=== PATIENT | male | born 1955 | race Caucasian/White ===

== ENCOUNTER 2018-02-21 01:57 | Outpatient (CLI) | payer MEDICARE, MEDICAID, SELFPAY ==
[2018-02-21 13:12] LABS: Hemoglobin A1C 6.1 % (4.5-6.2)
[2018-02-21 13:24] LABS: ALT 46 U/L (12-78); AST 27 U/L (15-37); Alkaline Phosphatase 157 U/L (46-116); Anion Gap 6.8 mmol/L (3-11); BUN 16 mg/dL (7-18); Bilirubin, Total 0.5 mg/dL (0.2-1.0); CO2 31.2 mmol/L (21.0-32.0); CREATININE 1.09 mg/dL (0.70-1.30); Chloride 102 mmol/L (98-107); Cholesterol 159 mg/dL (50-200); Glucose 101 mg/dL (70-100); HDL Cholesterol 31 mg/dL (40-60); LDL CHOLESTEROL 112 mg/dL (<100); Potassium 4.8 mmol/L (3.5-5.1); Sodium 140 mmol/L (136-145); Total Protein 7.3 g/dL (6.4-8.2); Triglyceride 112 mg/dL (30-150)
== END 2018-02-21 02:17 ==
PROVIDERS: PCP Family Medicine; Visit Provider Family Medicine
DX: E78.5 Hyperlipidemia, unspecified (principal); R73.01 Impaired fasting glucose
CPT/HCPCS: 36415; 80053; 80061; 83721; 83036

== ENCOUNTER 2018-03-30 19:38 | Emergency (ER) | payer MEDICARE, MEDICAID, SELFPAY ==
[2018-03-30 19:48] VITALS: BP 108/73; PULSE 84; RESP 16; TEMP 37; O2SAT 95
--- NOTE | 2018-03-30 20:23 | ED.GENADUL_ITS ---
Discharge Plan Disposition Patient Disposition: HOME Condition: Improving Discharge Details Chief Complaint: RespSymp Clinical Impression: Viral upper respiratory illness Primary Care Provider: Ten Trevino ED Provider: Jimmie Barbosa Home Meds and New Rx's Prescriptions: New guaifenesin [Mucinex] 600 mg tablet extended release 12hr 600 mg PO Q12H PRNQty: 10 RF: 0 benzonatate [Tessalon Perles] 100 mg capsule 100 mg PO TID PRN (Reason: cough) Qty: 10 RF: 0 Continued cyanocobalamin (vitamin B-12) [Vitamin B-12] 1,000 mcg tablet extended release 1,000 mcg PO DAILY Qty: 90 RF: 4 aspirin 325 MG tablet,delayed release (DR/EC) 325 mg PO DAILY Qty: 90 RF: 3 metoprolol tartrate 25 MG tablet 0.5 tab PO BID Qty: 90 RF: 3 losartan 50 MG tablet 50 mg PO DAILY Qty: 90 RF: 3 omeprazole 20 MG capsule,delayed release(DR/EC) 1 tab PO BID Qty: 180 RF: 3 ProAir HFA 8.5 GM HFA aerosol inhaler 1 - 2 puff Inhalation Q6H PRN Qty: 1 RF: 3 carbidopa-levodopa [Sinemet] 1 EACH tablet 1 tab PO HS Qty: 90 RF: 3 atorvastatin 80 MG tablet 80 mg PO DAILY Qty: 90 RF: 3 ibuprofen 800 MG tablet 800 mg PO TID PRNQty: 50 RF: 2 nitroglycerin 0.4 MG tablet, sublingual 0.4 mg Sublingual PRN Qty: 30 RF: 3 Flovent HFA 12 GM HFA aerosol inhaler 1 puff Inhalation BID Qty: 1 RF: 2 furosemide 40 mg tablet 40 mg PO DAILY Qty: 90 RF: 3 bupropion HCl [Wellbutrin SR] 150 mg tablet extended release 12 hr 150 mg PO BID Qty: 180 RF: 3 Centrum Silver Men 1 EACH tablet 1 tab PO DAILY RF: 0 Discharge Instructions Instructions: Upper Respiratory Infection (ED) Additional Instructions: Home to rest today. Small, frequent sips of fluids to maintain hydration. Follow-up with [facility] if not improving in 3-5 days time. May use Tessalon and Mucinex as prescribed. May use the provided cough syrup as needed at bedtime tonight Medical Decision Making 62-year-old male presents with not quite 24 hours of upper respiratory illness with cough, congestion, malaise. He arrives with normal vital signs. Initial diagnosis includes viral syndrome, influenza, bronchitis. Patient had rapid influenza screen was referred for chest x-ray. Rapid influenza negative. Chest x-ray Lab Data 03/30/18 20:25 Nasopharynx Influenza Types A,B Antigen - Final HPI General Mode of arrival: ambulatory . Date/Time Provider Initiated Documentation: 03/30/18 19:54 . Limitations to Documentation: no limitations . Information obtained by: patient . History of Present Illness 62 year old M presents to the emergency department with the chief complaint of Fever, cough, congestion over 1 days time, described as moderate, Quality is described as aching, and is localized to the chest. Patient started experiencing this hour(s) and it has been constant. No relieving factors improve symptom(s), No exacerbating factors reported . Patient notes cough, fever/chills and loss of appetite. Patient did receive the following treatments prior to arrival, NSAID Related Data Home Medications Medication Instructions Recorded Confirmed aspirin 325 mg PO DAILY #90 tab-cap 11/26/16 03/30/18 metoprolol tartrate 0.5 tab PO BID #90 tab-cap 03/25/17 03/30/18 ProAir HFA 1 - 2 puff INHALATION Q6H PRN #1 03/27/17 03/30/18 inhaler carbidopa-levodopa [Sinemet] 1 tab PO HS #90 tab 03/27/17 03/30/18 losartan 50 mg PO DAILY #90 tab-cap 03/27/17 03/30/18 omeprazole 1 tab PO BID #180 tab 03/27/17 03/30/18 atorvastatin 80 mg PO DAILY #90 tab-cap 05/14/17 03/30/18 ibuprofen 800 mg PO TID PRN #50 tab 05/14/17 03/30/18 Flovent HFA 1 puff INHALATION BID #1 inhaler 07/16/17 03/30/18 nitroglycerin 0.4 mg SUBLINGUAL PRN #30 tab 07/16/17 03/30/18 Centrum Silver Men 1 tab PO DAILY 09/03/17 03/30/18 furosemide 40 mg tablet 40 mg PO DAILY #90 tab 12/18/17 03/30/18 bupropion HCl SR 150 mg tablet,12 150 mg PO BID #180 tab-cap 18 03/30/18 hr sustained-release cyanocobalamin (vit B-12) ER 1,000 1,000 mcg PO DAILY #90 tab 02/21/18 03/30/18 mcg tablet,extended release benzonatate [Tessalon Perles] 100 mg PO TID PRN #10 cap 03/30/18 guaifenesin [Mucinex] 600 mg PO Q12H PRN #10 tab 03/30/18 Previous Rx's Medication Instructions Recorded metoprolol tartrate 0.5 tab PO BID #90 tab-cap 03/25/17 ProAir HFA 1 - 2 puff INHALATION Q6H PRN #1 03/27/17 inhaler carbidopa-levodopa [Sinemet] 1 tab PO HS #90 tab 03/27/17 losartan 50 mg PO DAILY #90 tab-cap 03/27/17 omeprazole 1 tab PO BID #180 tab 03/27/17 atorvastatin 80 mg PO DAILY #90 tab-cap 05/14/17 Flovent HFA 1 puff INHALATION BID #1 inhaler 07/16/17 nitroglycerin 0.4 mg SUBLINGUAL PRN #30 tab 07/16/17 furosemide 40 mg tablet 40 mg PO DAILY #90 tab 12/18/17 bupropion HCl SR 150 mg tablet,12 150 mg PO BID #180 tab-cap 01/03/18 hr sustained-release cyanocobalamin (vit B-12) ER 1,000 1,000 mcg PO DAILY #90 tab 02/21/18 mcg tablet,extended release benzonatate [Tessalon Perles] 100 mg PO TID PRN #10 cap 03/30/18 guaifenesin [Mucinex] 600 mg PO Q12H PRN #10 tab 03/30/18 Allergies Allergy/AdvReac Type Severity Reaction Status Date / Time No Known Allergies Allergy Unverified 03/30/18 19:51 General Stated Complaint: RespSymp UNIQUE: 3 Review of Systems Review of Systems 8 systems reviewed and otherwise - PFSH Surgical History Appendectomy Colonoscopy - MAC (03/11/17) Heart Surgery Shoulder Surgery (~03/2016) Family History Mother Stroke Father Heart disease Sister Heart disease Brother Heart disease Sister Heart disease Sister No problems noted. Sister No problems noted. Sister Heart disease Brother Diabetes Brother No problems noted. Son No problems noted. Daughter No problems noted. Daughter No problems noted. Social History household members: spouse current occupational status: disabled pets and animals: Yes pets and animals: cat(s) frequency: 1-2 times per week duration: 60-90 minutes/day Smoking/Tobacco Use Status: Former Tobacco Use alcohol intake: never substance use type: does not use alma delia/congregational: Confucianist special alma delia needs: No Exam Narrative Exam Narrative: GEN: awake, alert, oriented 3. Pleasant, well groomed, interactive. HEAD: Normocephalic, atraumatic ENT: Mucous membr, TMs clear bilaterally Anes moist, oropharynx erythematous tonsillar pillars without swelling or, External ear exam unremarkable EYES: PERRL, EOMI NECK: Full ROM, no TEE, no menigismus CHEST/RESP: Nontender, clear to auscultation bilateral, no wheeze/rhonchi/rales CARDIOVASCULAR: RRR, no murmur, rub michael. 2+ Rad pulse bilateral ABDOMEN: Soft, nontender, no mass. +Bowel sounds EXT: Full ROM, no edema, no rash Neuro: Grossly normal neurologic exam, conversant, interactive. Psych: Speech fluent, thoughts congruent, affect normal Course Vital Signs Temperature 37.0 C 03/30/18 19:48 Pulse 84 03/30/18 19:48 Respiratory Rate 16 03/30/18 19:48 Blood Pressure 108/73 03/30/18 19:48 Pulse Oximetry 95 03/30/18 19:48 Temperature 37.0 C 03/30/18 19:48 Temperature Source Temporal Artery Scan 03/30/18 19:48 Pulse 84 03/30/18 19:48 Respiratory Rate 16 03/30/18 19:48 Respiratory Effort Non-Labored 03/30/18 19:53 Respiratory Depth Normal 03/30/18 19:53 Blood Pressure 108/73 03/30/18 19:48 Blood Pressure Position Sitting 03/30/18 19:48 Pulse Oximetry 95 03/30/18 19:48 Oxygen Delivery Method Room Air 03/30/18 19:48 Oxygen Flow Rate 0 03/30/18 19:48 Pain Level 6 03/30/18 19:48 Comment 03/30/18 19:48
[2018-03-30] MEDS: guaiFENesin/CODEINE PHOSPHATE 10 ML CUP PO (20:42)
[2018-03-30] MEDS: guaiFENesin/CODEINE PHOSPHATE 10 ML CUP 20 ML PO (20:42)
--- NOTE | 2018-03-30 20:44 | DI.RAD_ITS ---
SYMPTOM/DIAGNOSIS: COUGH PA AND LATERAL CHEST: 03/30 The heart is not enlarged. The lungs appear generally clear. A faint rounded radiodensity is seen overlying T-8 vertebral body posteriorly present on previous examinations including 10/13/13 and unchanged. No pleural effusion seen. CONCLUSION: No evidence of acute disease.
--- NOTE | 2018-03-30 21:06 | DI.VRAD_ITS ---
EXAM: XR Chest, 2 Views EXAM DATE/TIME: 03/30/2018 8:16 PM CLINICAL HISTORY: 62 years old, male; Signs and symptoms; Cough TECHNIQUE: XR of the chest, 2 views. COMPARISON: CR CHEST 2 VIEWS PA,LAT 03/19/2017 12:18 AM FINDINGS: Lungs: No consolidation. Pleural space: No pleural effusion. No pneumothorax. Heart/Mediastinum: No cardiomegaly. Bones/joints: No acute fracture. IMPRESSION: No acute cardiopulmonary pathology. Dictated and Authenticated by: Sharon Lo MD. Ordering:LEENA Samuel MD
== END 2018-03-30 21:25 | disposition home or self-care (01) ==
PROVIDERS: Emergency Provider Emergency Medicine; PCP Family Medicine
DX: J06.9 Acute upper respiratory infection, unspecified (principal); J44.9 Chronic obstructive pulmonary disease, unspecified; Z87.891 Personal history of nicotine dependence; E11.9 Type 2 diabetes mellitus without complications
CPT/HCPCS: 87449; 99283; 71046

== ENCOUNTER 2018-09-26 09:24 | Outpatient (CLI) | payer MEDICARE, MEDICAID, SELFPAY ==
[2018-09-26 10:10] LABS: HCT 45.2 % (40.0-50.0); Mean Corp. HGB Concentration 33.2 g/dL (32.0-36.0); Mean Corpuscular Hemoglobin 29.8 pg (27.0-33.0); Mean Corpuscular Volume 89.9 fL (80-95); Mean Platelet Volume 9.1 fL (8.0-11.0); Platelet Count 257 x1000/uL (130-400); RBC 5.03 m/cumm (4.50-6.00); RBC Distribution Width 12.9 % (11.8-14.1); White Blood Cell Count 6.59 k/cumm (4.4-10.8)
[2018-09-26 12:00] LABS: ALT 35 U/L (12-78); AST 21 U/L (15-37); Albumin 3.8 g/dL (3.4-5.0); Alkaline Phosphatase 136 U/L (46-116); Anion Gap 9.9 mmol/L (3-11); BUN 25 mg/dL (7-18); Bilirubin, Total 0.3 mg/dL (0.2-1.0); CO2 27.1 mmol/L (21.0-32.0); CREATININE 1.02 mg/dL (0.70-1.30); Calcium 8.8 mg/dL (8.5-10.1); Calculated LDL 99; Chloride 107 mmol/L (98-107); Cholesterol 143 mg/dL (50-200); Glucose 110 mg/dL (70-100); HDL Cholesterol 27 mg/dL (40-60); Potassium 5.2 mmol/L (3.5-5.1); Sodium 144 mmol/L (136-145); Total Protein 6.8 g/dL (6.4-8.2); Triglyceride 86 mg/dL (30-150)
== END 2018-09-26 09:44 ==
PROVIDERS: PCP Family Medicine; Visit Provider Family Medicine
DX: E78.5 Hyperlipidemia, unspecified (principal); I10 Essential (primary) hypertension; R73.01 Impaired fasting glucose
CPT/HCPCS: 36415; 80053; 80061; 83721; 85027

== ENCOUNTER 2019-01-20 11:32 | Outpatient (CLI) | payer MEDICARE, MEDICAID, SELFPAY ==
[2019-01-20 14:01] LABS: ALT 39 U/L (16-63); AST 23 U/L (15-37); Alkaline Phosphatase 141 U/L (46-116); BUN 17 mg/dL (7-18); Bilirubin, Total 0.3 mg/dL (0.2-1.0); CREATININE 1.19 mg/dL (0.70-1.30); Calcium 8.5 mg/dL (8.5-10.1); Calculated LDL 100 mg/dL; Chloride 105 mmol/L (98-107); Cholesterol 150 mg/dL (50-200); GGT 71 U/L (15-85); Glucose 94 mg/dL (70-100); HDL Cholesterol 25 mg/dL (40-60); Magnesium 2.5 mg/dL (1.8-2.4); Potassium 5.2 mmol/L (3.5-5.1); Sodium 142 mmol/L (136-145); Total Protein 6.9 g/dL (6.4-8.2); Triglyceride 126 mg/dL (30-150)
== END 2019-01-20 11:52 ==
PROVIDERS: PCP Family Medicine; Visit Provider Family Medicine
DX: I25.10 Atherosclerotic heart disease of native coronary artery without angina pectoris (principal); E78.5 Hyperlipidemia, unspecified; I10 Essential (primary) hypertension; R73.01 Impaired fasting glucose; G47.62 Sleep related leg cramps; R74.8 Abnormal levels of other serum enzymes
CPT/HCPCS: 36415; 80053; 80061; 82977; 83036; 83735

== ENCOUNTER 2020-01-28 04:11 | Outpatient (CLI) | payer MEDICARE, MEDICAID, SELFPAY ==
[2020-01-28 11:13] LABS: ALT 32 U/L (16-63); AST 29 U/L (15-37); Alkaline Phosphatase 147 U/L (46-116); Anion Gap 6.6 mmol/L (3-11); BUN 21 mg/dL (7-18); Bilirubin, Total 0.4 mg/dL (0.2-1.0); CO2 30.4 mmol/L (21.0-32.0); Calcium 8.9 mg/dL (8.5-10.1); Calculated LDL 120 mg/dL (<100); Chloride 103 mmol/L (98-107); Cholesterol 165 mg/dL (<200); Glucose 125 mg/dL (74-106); HDL Cholesterol 27 mg/dL (40-60); Magnesium 2.1 mg/dL (1.8-2.4); Sodium 140 mmol/L (136-145); Total Protein 7.3 g/dL (6.4-8.2); Triglyceride 91 mg/dL (<150)
== END 2020-01-28 04:31 ==
PROVIDERS: PCP Family Medicine; Visit Provider Family Medicine
DX: E78.5 Hyperlipidemia, unspecified (principal); I25.10 Atherosclerotic heart disease of native coronary artery without angina pectoris
CPT/HCPCS: 36415; 80053; 80061; 83735

== ENCOUNTER → 2020-12-22 12:41 | Outpatient (BNVA) | payer OTHER, MEDICAID, SELFPAY | PROVIDERS: PCP Nurse Practitioner; Referring Provider Family Medicine; Visit Provider Physical Therapy Assistant | DX: Z12.11 Encounter for screening for malignant neoplasm of colon (principal); Z86.010 Personal history of colon polyps; J44.9 Chronic obstructive pulmonary disease, unspecified ==

== ENCOUNTER 2021-01-11 02:11 | Outpatient (CLI) | payer OTHER, MEDICAID, SELFPAY ==
[2021-01-11 09:15] LABS: Source Nasal/Nares
[2021-01-11 12:04] LABS: COVID-19 PCR Negative (Negative)
== END 2021-01-11 02:12 | disposition home or self-care (01) ==
LOC: LBO 02:11
PROVIDERS: PCP Nurse Practitioner; Visit Provider Surgery
DX: Z20.822 Contact with and (suspected) exposure to COVID-19 (principal); Z01.818 Encounter for other preprocedural examination
CPT/HCPCS: 87635

== ENCOUNTER 2021-01-13 06:04 | Day surgery (SDC) | payer OTHER, MEDICAID, SELFPAY ==
--- NOTE | 2021-01-12 21:34 | W.COLOREPORT ---
Colonoscopy Report Date of procedure: 01/13/21 Pre-op diagnosis general: hx of sessile serrated/+fam hx of CRC Post-op diagnosis procedure note: same Surgeon: Hope Rodriguez Anesthesia Type: General:No Airway Estimated blood loss (mL): 1 Pathology: other Complications: None Disposition: same day Prep: Miralax/Dulcolax Retraction Time: 10 Procedure Description: After informed consent was obtained the patient was taken to the procedure room and placed in a left decubitous position. Monitors were applied and a time out was done. The patients name, date of , procedure, allergies to medications and metal in their body was reviewed. The patient was then sedated. Once sedated and comfortable a rectal exam was done. External exam was normal. Internal exam revealed a normal sphincter tone and no palpable masses. The scope was then introduced and retrofelexed. No internal hemorrhoids were identified. The scope was then advanced to the cecum without difficulty. The TI and appendiceal orifice were identified. The prep was adequate. The scope was then slowly retracted over 10 minutes back into the rectum. Patient had a 0.75 cm flat polyp at 20 cm. This is removed in 2 bites of a cold forcep. No bleeding is noted. All specimen is retrieved. He does not have any diverticular disease. The mucosa is otherwise pink and healthy. No other polyps are visualized today. The scope was removed and the patient was woken up and taken back to Same day surgery in stable condition. The patient tolerated the procedure well and there were no immediate complications. Follow up: The patient should follow up in 5 years unless they develop changes in bowel habits or other new gastrointestinal complaints.
--- NOTE | 2021-01-12 21:35 | PDOC.DSDIS_ITS ---
Discharge Plan Disposition Patient Disposition: HOME Condition: Good Discharge Details Reason For Visit: colon scope Attending Provider: Hope Rodriguez Primary Care Provider: Rosalind Slater Home Meds and New Rx's Prescriptions: Continued nitroglycerin 0.4 mg tablet, sublingual 0.4 mg Sublingual PRN Qty: 30 RF: 5 albuterol sulfate [ProAir HFA] 90 mcg/actuation HFA aerosol inhaler 1 - 2 puff Inhalation Q6H PRN Qty: 1 RF: 3 atorvastatin 80 mg tablet 80 mg PO DAILY Qty: 90 RF: 3 bupropion HCl [Wellbutrin SR] 150 mg tablet sustained-release 12 hr 150 mg PO BID Qty: 180 RF: 3 carbidopa-levodopa [Sinemet] 25-100 mg tablet 1 tab PO HS Qty: 90 RF: 3 Hold Instructions: Home Medication placed on hold at Doctor's office cyanocobalamin (vitamin B-12) [Vitamin B-12] 1,000 mcg tablet extended release 1,000 mcg PO DAILY Qty: 90 RF: 4 Flovent HFA 110 mcg/actuation HFA aerosol inhaler 1 puff Inhalation BID Qty: 1 RF: 5 furosemide 40 mg tablet 40 mg PO DAILY Qty: 90 RF: 3 losartan 50 mg tablet 50 mg PO DAILY Qty: 90 RF: 3 metformin 500 mg tablet extended release 24 hr 500 mg PO QPM Qty: 90 RF: 3 metoprolol tartrate 25 mg tablet 12.5 mg PO BID Qty: 90 RF: 3 omeprazole 20 mg capsule,delayed release(DR/EC) 20 mg PO BID Qty: 180 RF: 3 aspirin 325 MG tablet,delayed release (DR/EC) 325 mg PO DAILY Qty: 90 RF: 3 Discontinued bisacodyl [Dulcolax (bisacodyl)] 5 mg tablet,delayed release (DR/EC) 5 mg PO ONCE Qty: 4 RF: 0 polyethylene glycol 3350 17 gram/dose powder 238 g PO ONCE Qty: 238 RF: 0 Discharge Instructions Additional Instructions: DSU Colonoscopy Post- Op Instructions Instructions for Everyone who is given Anesthesia: For your safety, please do the following for the next t wenty-four (24) hours: *Do Not operate a motor vehicle (car, truck, motorcycle, etc.) *Do Not drink alcoholic beverages or use any recreational drugs for the first 24 hours or while taking pain medications. The medications in your body may have a reaction that can be dangerous. *Do Not make any important decisions or sign any important papers. Findings: x1 small polyp *Resume aspirin therapy in 72 hours. Do not take NSAIDs if taking. Follow up:most likely repeat in 5 yrs time My office will send a letter in 2 to 3 weeks time, detailing as to what type of polyp it was and when we want you to repeat your colonoscopy. 1. No lifting over 20 pounds or strenuous activity for the first 24 hours after your procedure. After 24 hours there are no restrictions on your activity but you may feel fatigued for a few days. 2. After you arrive home you may have a light meal and return to your normal diet as you can tolerate it without feeling sick to your stomach. 3. You may have a bloated, gaseous feeling in your belly (abdomen) after a colonoscopy. Passing gas and belching will help. Walking or lying down on your left side with your knees flexed may relieve the discomfort. Call the office at [phone] (Office) or [phone] (Hospital) right away if you notice any of the following: a.Vomiting of blood or ?coffee ground stools?. b.Rectal bleeding 1Tbsp, blood clots or continuous bleeding. c.Severe belly (abdominal) pain. d.A hard distended belly (abdomen) and an inability to pass gas. 4. Please don?t expect to have a normal BM (bowel movement) for 2-3 days after your procedure. 5. If there are questions regarding the findings of your procedure, please contact your doctor 6. If you are unable to contact your doctor with a problem, contact the hospital at [phone]. 7. Continue all your regular medications unless directed otherwise. I understand the above instructions and have no questions. Signature of Patient or Adult Escort Name of Responsible Adult Escort Signature of Nurse Date/Time Activity:: see above Diet:: see above Discharge Orders Discharge Orders: Discharge Order (Routine); Ordered 01/12/21 Ordered By: Hope Rodriguez DS: Diagnosis Discharge Diagnosis (1) Chronic obstructive lung disease: Status: Acute (2) Coronary artery arteriosclerosis: Status: Acute (3) Depressive disorder: Status: Acute (4) Essential hypertension: Status: Acute (5) Gastroesophageal reflux disease with esophagitis: Status: Acute (6) Sessile colonic polyp: Status: Acute (7) DM type 2 (diabetes mellitus, type 2): Status: Acute (8) Family history of colon cancer: Status: Acute
[2021-01-13 06:22] VITALS: BP 116/80; PULSE 60; RESP 18; TEMP 36.2; O2SAT 96
--- NOTE | 2021-01-13 07:09 | ANES.PREOP_ITS ---
General Info Date of Service Date Performed: 01/13/21 Height: 5 ft 6 in Weight: 101.6 kg Body Mass Index (BMI): 36.1 Surgical Procedure: Operation Date: 01/13/21 07:35 Proposed Procedures Side Surgeon robert Rodriguez, DO Meds Allergies and Home Medications Allergies Allergy/AdvReac Type Severity Reaction Status Date / Time No Known Allergies Allergy Verified 01/13/21 06:26 Home Medication Medication Instructions Recorded aspirin 325 mg PO DAILY #90 tab-cap 11/26/16 nitroglycerin 0.4 mg sublingual 0.4 mg SUBLINGUAL PRN #30 tab 01/25/20 tablet albuterol sulfate 90 mcg/actuation 1 - 2 puff INHALATION Q6H PRN #1 09/23/20 aerosol inhaler inhaler atorvastatin 80 mg tablet 80 mg PO DAILY #90 tab-cap 09/23/20 bupropion HCl 150 mg tablet,12 hr 150 mg PO BID #180 tab-cap 09/23/20 sustained-release carbidopa 25 mg-levodopa 100 mg 1 tab PO HS #90 tab 09/23/20 tablet cyanocobalamin (vitamin B-12) 1,000 mcg PO DAILY #90 tab 09/23/20 1,000 mcg tablet,extended release fluticasone propionate 110 1 puff INHALATION BID #1 inhaler 09/23/20 mcg/actuation HFA aerosol inhaler furosemide 40 mg tablet 40 mg PO DAILY #90 tab 09/23/20 losartan 50 mg tablet 50 mg PO DAILY #90 tab-cap 09/23/20 metformin 500 mg tablet,extended 500 mg PO QPM #90 tab 09/23/20 release 24 hr metoprolol tartrate 25 mg tablet 12.5 mg PO BID #90 tab-cap 09/23/20 omeprazole 20 mg capsule,delayed 20 mg PO BID #180 tab 09/23/20 release bisacodyl 5 mg tablet,delayed 5 mg PO ONCE #4 tab 12/22/20 release polyethylene glycol 3350 17 238 g PO ONCE #238 g 12/22/20 gram/dose oral powder Current Visit Medications: Current Medications Generic Name Dose Route Start Last Admin Trade Name Freq PRN Reason Stop Dose Admin Hyoscyamine Sulfate 0.125 mg 01/12/21 21:33 Hyoscyamine 0.125 Mg Sl/Oral/Chew SL DIRECTED PRN Ringer's Solution 1,000 mls @ 80 mls/hr 01/13/21 06:00 IV 02/11/21 23:59 [facility] IV Miscellaneous Supplies 1 each 01/13/21 06:00 Iv Access IV 02/11/21 23:59 DIRECTED LILIA Ondansetron HCl 4 mg 01/12/21 21:33 Ondansetron 4 Mg/2 Ml Vial IVP Q4H PRN PRN Nausea / Vomiting Sodium Chloride 0 ml 01/13/21 06:00 Normal Saline Flush 10 Ml Syr IV 02/11/21 23:59 PRN PRN Sodium Chloride 0 ml 01/13/21 06:00 Normal Saline 10 Ml Vial IJ 02/11/21 23:59 DIRECTED PRN Sterile Water 0 ml 01/13/21 06:00 Water,Injection,Sterile 10 Ml Vial IJ 02/11/21 23:59 DIRECTED PRN PFSH Active Problems Active Problems: Problem Status Onset Code Family history of colon cancer 08/20/11 Z80.0 Chronic obstructive lung disease 09/29/08 J44.9 Coronary artery arteriosclerosis 09/02/13 I25.10 Depressive disorder 09/29/08 F32.9 Edema 09/22/14 R60.9 Essential hypertension 12/24/12 I10 Gastroesophageal reflux disease with esophagitis 09/29/08 K21.0 Hyperlipidemia 07/09/12 E78.5 Sessile colonic polyp 03/11/17 K63.5 Nocturnal leg cramps G47.62 DM type 2 (diabetes mellitus, type 2) E11.9 Left knee pain M25.562 Medical History Medical History Family history of colon cancer (08/20/11) Hx of myocardial infarction 2009-f/u with PCP Illiterate Per pt. pt. is unable to read or write, he is able to sign his name, but needs to have things read to him. Tobacco use disorder (07/09/12) quit 2009 Surgical History Surgical History Appendectomy Colonoscopy - MAC (03/11/17) Heart Surgery stents - 2009 Shoulder Surgery (~03/2016) Tobacco Smoking/Tobacco Use Status: Former Tobacco Use Quit Status: quit date established Second hand exposure: No Alcohol Alcohol Intake: current Alcohol intake frequency: holidays/special occasions only Alcohol type: beer Substance Use Substance use: Never Substance use type: does not use Vital Signs and Lab Results Vital Signs Most Recent Vital Signs in EMR: Most Recent Vital Signs Temp Pulse Resp BP Pulse Ox 36.2 C L 60 18 116/80 96 01/13/21 06:22 01/13/21 06:22 01/13/21 06:22 01/13/21 06:22 01/13/21 06:22 Point of Care Results Point of Care Results: Finger Stick Blood Glucose 104 01/13/21 06:48 Lab Results Blood Type / Crossmatch: No Data to Display Complete Blood Count: No Data to Display Complete Metabolic Panel: No Data to Display Liver Function Panel: No Data to Display Coagulation Panel: No Data to Display Cardiac Panel: No Data to Display Arterial Blood Gas: No Data to Display Venous Blood Gas: No Data to Display Pancreas Panel: No Data to Display Thyroid Panel: No Data to Display Infectious Disease: Coronavirus (COVID-19)(PCR) Negative (Negative) 01/11/21 08:36 01/11/21 Coronavirus 2019 Source Nasal/Nares 01/11/21 08:36 01/11/21 Blood Cultures: No Data to Display Toxicology Panel: No Data to Display Imaging and Studies Imaging and Studies Echocardiogram Summary: 06/30/12: EF 55%, Normal valves Cardiac Catheterization Summary: 06/30/12: Stent x2 to RCA Pulmonary Function Summary: DATE OF SERVICE: May 16, 2015 PRIMARY CARE PROVIDER: Terry Nichols M.D. INTERPRETATION OF STUDY: Spirometry shows mild obstructive airways disease with no significant bronchodilator response. LUNG VOLUMES: Show no evidence of restriction. DIFFUSION CAPACITY: Normal. AIRWAYS RESISTANCE: Normal. IMPRESSION: Overall normal pulmonary function study. Clinical correlation recommended. Both efforts for spirometry were either somewhat poor patient effort or represent intrathoracic but extrapulmonary airway obstruction based on the shape of the flow volume loop, therefore further evaluation for that may be recommended. When this study was compared to previous one from 09/30/08, the patient has 330 cc decline in FVC and 80 cc decline in FEV1. Anesthesia Assessment and Plan Anesthesia History Personal History: No History of Anesthesia Complications Family History: No Family History of Anesthesia Complications Exercise Tolerance Exercise Tolerance: Metabolic Equivalents>4 Pertinent Negatives Pertinent Negatives: No Symptoms of GERD Cardiac & Pulmonary Exam Cardiac Exam: Normal S1/S2 Heart Sounds Pulmonary Exam: Clear Bilateral Breath Sounds Airway Exam Known Difficult Airway: No Mallampati Class: 3 Mouth Opening: Narrow (< 3cm) Thyromental Distance: Less than 3 cm Neck Range of Motion: Full ROM Neck Circumference: Normal Teeth Condition: Removable Dentures/Plates Upper ASA Classification ASA Score: ASA 3 Emergency Case?: No NPO Status NPO Status: NPO Clears >2 hours, Solids >8 hours Anesthesia Plan Resuscitation Status: Full Code Anesthesia Technique: General Anesthesia Airway Planned: Natural Airway Monitors Used: Standard Monitors
[2021-01-13 07:30] VITALS: BMI 36.1
[2021-01-13] MEDS: Lactated Ringers 1,000 ML 80 ML IV (07:40)
--- NOTE | 2021-01-13 08:10 | BOWEL_PTH ---
PATIENT: Ravin Snyder LOC: [facility] U#:[id number] AGE/SX: 65/M ROOM: RE01/13/[address]: Hope Rodriguez : 1955 BED: DIS: 01/13/2021 SPEC #: [id number] RECD: 01/13/21 12:32 STATUS: JORY REQ #: [id number] EHSAN: 01/13/21 08:[address]: Hope Rodriguez DEPT: Surgical Specimen RECD BY: Indy Rizo ENTERED: 01/13/21 12:33 SP TYPE: Bowel OTHR DR: Rosalind Slater, PhD BREAD PANNER Tissues: 1 - BIOPSY BOWEL Procedures: GROSS AND MICRO LEVEL 4 Comments: [id number]
[2021-01-13 08:25] VITALS: BP 97/67; PULSE 70; RESP 20; TEMP 36.3; O2SAT 94
--- NOTE | 2021-01-13 08:50 | W.ANESPOSTOP ---
Postoperative Evaluation Date, Time and Location Date Performed: 01/13/21 Time Performed: 08:50 Patient Location: Day Surgery Unit Vital Signs Most Recent Imported Vital Signs: Most Recent Vital Signs Temp Pulse Resp BP Pulse Ox 36.3 C L 70 20 97/67 L 94 01/13/21 08:25 01/13/21 08:25 01/13/21 08:25 01/13/21 08:25 01/13/21 08:25 Pain Score Most Recent Pain Score: Most Recent Pain Score Pain Level 0 01/13/21 08:25 Assessment Mental Status: Arousable with meaningful communication Airway and Respiratory Function: Patent airway with normal (patient baseline) respiratory exam Cardiovascular Function: Hemodynamically Stable Hydration Status: Adequately Hydrated Nausea & Vomiting: No Nausea or Vomiting Pain: Pt. Denies Any Pain Peripheral Nerve Block: Patient did not receive a nerve block
[2021-01-13 09:07] VITALS: BP 105/65; PULSE 68; RESP 17; TEMP 36.3; O2SAT 94
== END 2021-01-13 09:34 | disposition home or self-care (01) ==
PROVIDERS: PCP Nurse Practitioner; Visit Provider Surgery
PROC: 0DJD8ZZ Inspection of Lower Intestinal Tract, Via Natural or Artificial Opening Endoscopic (ICD-10-PCS; CPT 45378; principal; 2021-01-13 07:30)
DX: Z12.11 Encounter for screening for malignant neoplasm of colon (principal); Z80.0 Family history of malignant neoplasm of digestive organs; Z86.010 Personal history of colon polyps; D12.5 Benign neoplasm of sigmoid colon
CPT/HCPCS: 45380; 88305; J2704

== ENCOUNTER 2021-02-10 03:26 | Outpatient (CLI) | payer OTHER, MEDICAID, SELFPAY ==
[2021-02-10 13:10] LABS: Anion Gap 11.6 mmol/L (3-11); BUN 22 mg/dL (7-18); CO2 25.4 mmol/L (21.0-32.0); Calcium 8.7 mg/dL (8.5-10.1); Calculated LDL 84 mg/dL (<100); Chloride 107 mmol/L (98-107); Cholesterol 139 mg/dL (<200); Glucose 118 mg/dL (74-106); HDL Cholesterol 26 mg/dL (40-60); Potassium 4.5 mmol/L (3.5-5.1); Sodium 144 mmol/L (136-145); Triglyceride 145 mg/dL (<150)
[2021-02-10 13:13] LABS: Hemoglobin A1C 6.5 % (<5.7)
== END 2021-02-10 03:27 | disposition home or self-care (01) ==
LOC: LOS 03:26
PROVIDERS: PCP Nurse Practitioner; Visit Provider Nurse Practitioner
DX: E11.9 Type 2 diabetes mellitus without complications (principal); I10 Essential (primary) hypertension; E78.5 Hyperlipidemia, unspecified; R60.0 Localized edema
CPT/HCPCS: 36415; 80048; 80061; 83036

== ENCOUNTER → 2021-06-06 10:24 | Outpatient (BNVA) | payer MEDICARE, SELFPAY | PROVIDERS: PCP Nurse Practitioner; Referring Provider Nurse Practitioner; Visit Provider Surgery | DX: M62.08 Separation of muscle (nontraumatic), other site (principal) | CPT/HCPCS: 99212; 99213 ==

== ENCOUNTER 2021-08-14 01:40 | Outpatient (CLI) | payer OTHER, MEDICAID, SELFPAY | END 2021-08-14 01:41 | disposition home or self-care (01) | LOC: LBO 01:40 | PROVIDERS: PCP Nurse Practitioner; Visit Provider Nurse Practitioner ==

== ENCOUNTER 2022-01-30 02:25 | Outpatient (CLI) | payer OTHER, MEDICAID, SELFPAY ==
[2022-01-30 13:04] LABS: Anion Gap 7.6 mmol/L (3-11); BUN 16 mg/dL (7-18); CO2 28.4 mmol/L (21.0-32.0); CREATININE 1.1 mg/dL (0.70-1.30); Calcium 8.3 mg/dL (8.5-10.1); Calculated LDL 86 mg/dL (<100); Chloride 105 mmol/L (98-107); Cholesterol 137 mg/dL (<200); Estimated GFR 74.96 (mL/min/1.73m2); Glucose 108 mg/dL (74-106); HDL Cholesterol 30 mg/dL (40-60); Potassium 4.2 mmol/L (3.5-5.1); Sodium 141 mmol/L (136-145); Triglyceride 107 mg/dL (<150)
[2022-01-30 13:32] LABS: Hemoglobin A1C 6.5 % (<5.7)
== END 2022-01-30 02:26 | disposition home or self-care (01) ==
LOC: LOS 02:25
PROVIDERS: PCP Nurse Practitioner; Visit Provider Nurse Practitioner
DX: E11.9 Type 2 diabetes mellitus without complications (principal); I10 Essential (primary) hypertension
CPT/HCPCS: 36415; 80048; 80061; 83036

== ENCOUNTER 2022-05-18 13:55 | Outpatient (REF) | payer OTHER, MEDICAID, SELFPAY ==
[2022-05-18 20:46] LABS: HCT 47.6 % (40.0-50.0); HGB 15.7 g/dL (13.5-17.5); MCH 29.8 pg (27.0-33.0); MCV 90 fL (80-95); Platelet Count 300 10^3/uL (130-400); RBC 5.27 10^6/uL (4.36-5.78); RDW 12.8 % (11.8-14.1); RDW-SD 42.5 fL; WBC 9.13 10^3/uL (4.4-10.8)
[2022-05-18 21:10] LABS: Ferritin 51 ng/mL (26-388)
== END 2022-05-18 13:56 | disposition home or self-care (01) ==
LOC: NCHCN 13:55
PROVIDERS: PCP Nurse Practitioner Family; Visit Provider Nurse Practitioner Family
DX: G47.62 Sleep related leg cramps (principal); E11.9 Type 2 diabetes mellitus without complications; I10 Essential (primary) hypertension
CPT/HCPCS: 85027; 82728

== ENCOUNTER 2022-05-28 01:18 | Outpatient (CLI) | payer OTHER, MEDICAID, SELFPAY ==
--- NOTE | 2022-05-28 08:00 | DI.RAD_ITS ---
Exam(s) XR KNEE LT 3V AP,LAT,ORLIN EXAM: XR KNEE LT 3V AP,LAT,ORLIN CLINICAL HISTORY: leg gives out,LT KNEE PAIN,M25.562. TECHNIQUE: 2D digital imaging was performed. Three views. COMPARISON: No exams were available for comparison FINDINGS: BONES: No acute fracture is present. No bony destructive lesion is seen. Enthesophyte at quadricep s insertion on the patella. JOINTS: Mild narrowing medial femoral tibial joint. Mild spurring at the articular aspect of the pat danita. The knee is normally aligned. No joint effusion is seen. SOFT TISSUE: Normal. IMPRESSION: Mild degenerative changes. DATA REPOSITORY: RADIATION DOSE DELIVERED:
== END 2022-05-28 01:38 ==
PROVIDERS: PCP Nurse Practitioner Family; Visit Provider Nurse Practitioner Family
DX: M17.12 Unilateral primary osteoarthritis, left knee (principal)
CPT/HCPCS: 73562

== ENCOUNTER → 2022-09-10 08:57 | Outpatient (BNVA) | payer OTHER, MEDICAID, SELFPAY | PROVIDERS: PCP Nurse Practitioner Family; Referring Provider Nurse Practitioner Family; Visit Provider Student in an Organized Health Care Education/Training Program | DX: M17.12 Unilateral primary osteoarthritis, left knee (principal); E11.9 Type 2 diabetes mellitus without complications | CPT/HCPCS: 20610; 99213; J1040 ==

== ENCOUNTER 2023-02-18 12:12 | Outpatient (CLI) | payer OTHER, MEDICAID, SELFPAY | END 2023-02-18 12:13 | disposition home or self-care (01) | LOC: DIORS 12:12 | PROVIDERS: PCP Nurse Practitioner Family; Referring Provider Nurse Practitioner Family; Visit Provider Student in an Organized Health Care Education/Training Program | DX: S83.242A Other tear of medial meniscus, current injury, left knee, initial encounter; X58.XXXA Exposure to other specified factors, initial encounter; M17.12 Unilateral primary osteoarthritis, left knee | CPT/HCPCS: 99213 ==

== ENCOUNTER → 2023-03-08 01:01 | Outpatient (CLI) | payer OTHER, MEDICAID, SELFPAY ==
--- NOTE | 2023-03-08 12:45 | DI.MRI_ITS ---
Exam(s) MR LOWER JOINT LT WO EXAM: MR LOWER JOINT LT WO CLINICAL HISTORY: pain, surgical planning,oa lt knee, tear of medial meniscus,m17.12,s83.242a. TECHNIQUE: Multiplanar multisequence MRI was performed. COMPARISON: CR XR KNEE LT 3V AP,LAT,ORLIN from 05/28/2022 FINDINGS: BONES: There is no fracture or contusion pattern. JOINTS: Articular cartilage is unremarkable. No effusion is present. TENDONS: Extensor mechanism: Unremarkable. Medial retinaculum: Unremarkable. Lateral retinaculum: Unremarkable. Popliteus: Unremarkable. MUSCLES: Unremarkable. MENISCI: There is hyperintense signal seen in the body of the medial meniscus. It appears to contact the inferior articular surface consistent with a tear. The lateral meniscus is unremarkable. SOFT TISSUES: Unremarkable. LIGAMENTS: Anterior Cruciate: Unremarkable. Posterior Cruciate: Unremarkable. Medial Collateral:Unremarkable. Lateral Collateral: Unremarkable. OTHER: IMPRESSION: 1. Findings of a tear of the body of the medial meniscus. 2. No evidence of a ligament tear. DATA REPOSITORY:
== END ==
PROVIDERS: PCP Nurse Practitioner Family; Visit Provider Student in an Organized Health Care Education/Training Program
DX: M17.12 Unilateral primary osteoarthritis, left knee (principal); S83.242A Other tear of medial meniscus, current injury, left knee, initial encounter; X58.XXXA Exposure to other specified factors, initial encounter
CPT/HCPCS: 73721

== ENCOUNTER → 2023-03-18 13:05 | Outpatient (BNVA) | payer OTHER, MEDICAID, SELFPAY | PROVIDERS: PCP Nurse Practitioner Family; Referring Provider Nurse Practitioner Family; Visit Provider Student in an Organized Health Care Education/Training Program | DX: S83.242A Other tear of medial meniscus, current injury, left knee, initial encounter (principal); X58.XXXA Exposure to other specified factors, initial encounter | CPT/HCPCS: 99213 ==

== ENCOUNTER 2023-04-16 10:23 | Day surgery (SDC) | payer OTHER, MEDICAID, SELFPAY ==
[2023-04-16] VITALS (8 sets, daily range): BP systolic 92–128; BP diastolic 54–83; PULSE 62–76; RESP 13–18; TEMP 36.2–36.6; O2SAT 93–97; BMI 33.8
--- NOTE | 2023-04-16 10:23 | PDOC.DSDIS_ITS ---
Date of service: 04/16/23 Time of Service: 11:38 Discharge Plan Disposition Patient Disposition: Home Condition: Good Discharge Details Reason For Visit: Left knee medial meniscus tear Attending Provider: Basilio Rodriguez Primary Care Provider: Uche Sharif Home Meds and New Rx's Prescriptions: New hydrocodone-acetaminophen 5-325 mg tablet 1 tab PO Q6H PRN (Reason: severe pain) Qty: 6 0RF Rx Instructions: Take one tablet up to every 6 hours as needed for severe postoperative pain Continued atorvastatin 80 mg tablet 80 mg PO DAILY Qty: 90 3RF bupropion HCl [Wellbutrin SR] 150 mg tablet sustained-release 12 hr 150 mg PO BID Qty: 180 3RF carbidopa-levodopa [Sinemet] 25-100 mg tablet 1 tab PO HS Qty: 90 3RF Hold Instructions: Home Medication placed on hold at Doctor's office cyanocobalamin (vitamin B-12) [Vitamin B-12] 1,000 mcg tablet extended release 1,000 mcg PO DAILY Qty: 90 4RF furosemide 40 mg tablet 40 mg PO DAILY Qty: 90 3RF metformin 500 mg tablet extended release 24 hr 500 mg PO QPM Qty: 90 3RF metoprolol tartrate 25 mg tablet 12.5 mg PO BID Qty: 90 3RF nitroglycerin 0.4 mg tablet, sublingual 0.4 mg Sublingual PRN Qty: 30 5RF omeprazole 20 mg capsule,delayed release(DR/EC) 20 mg PO BID Qty: 180 3RF albuterol sulfate [ProAir HFA] 90 mcg/actuation HFA aerosol inhaler 1 - 2 puff Inhalation Q6H PRN Qty: 1 4RF meloxicam 15 mg tablet 15 mg PO DAILY Qty: 30 0RF aspirin 325 MG tablet,delayed release (DR/EC) 325 mg PO DAILY Qty: 90 Patient Comments: 04/15/23: Michael aware pt. continued med, ok'd to proceed with surgery. losartan 50 mg tablet 50 mg PO DAILY Qty: 90 3RF Discharge Instructions Stand Alone Forms: Michael Knee Arthroscopy Referrals: Basilio Rodriguez MD [ [facility] STAFF PHYSICIAN] - Equipment/Supplies: Partial Weight Bearing Crutches Activity:: Elevate Remove Dressings/Wound Care:: 48 hours Shower/Bathe:: 48 hours Diet:: As Tolerated Discharge Orders Discharge Orders: Discharge Order (Routine); Ordered 04/16/23 Ordered By: Hope Snow
[2023-04-16] MEDS: Gabapentin 300 MG CAP PO (11:00)
[2023-04-16] MEDS: Celecoxib 200 MG CAP 400 MG PO (11:00)
[2023-04-16] MEDS: Lactated Ringers 1,000 ML 80 ML IV (11:01)
[2023-04-16] MEDS: Acetaminophen 500 MG TAB 1000 MG PO (11:01)
--- NOTE | 2023-04-16 11:52 | W.ANESPRE ---
General Info Date of Service Date Performed: 04/16/23 Height: 5 ft 6 in Weight: 95.2 kg Body Mass Index (BMI): 33.8 Surgical Procedure: Operation Date: 04/16/23 14:25 Proposed Procedure Side Surgeon p Knee Arthroscopy w/ Partial Medial Menisectomy Left Basilio Rodriguez MD Meds Allergies and Home Medications Allergies Allergy/AdvReac Type Severity Reaction Status Date / Time No Known Allergies Allergy Verified 04/16/23 10:51 Home Medication Medication Instructions Recorded aspirin 325 mg tablet,delayed 325 mg PO DAILY #90 tab-caps 11/26/16 release albuterol sulfate 90 mcg/actuation 1 - 2 puff inhalation Q6H PRN ##1 05/18/22 aerosol inhaler (ProAir HFA) atorvastatin 80 mg tablet 80 mg PO DAILY #90 tab-caps 05/18/22 bupropion HCl 150 mg tablet,12 hr 150 mg PO BID #180 tab-caps 05/18/22 sustained-release (Wellbutrin SR) carbidopa 25 mg-levodopa 100 mg 1 tab PO HS #90 tabs 05/18/22 tablet (Sinemet) cyanocobalamin (vitamin B-12) 1,000 mcg PO DAILY Vitamin B 12 05/18/22 1,000 mcg tablet,extended release deficiency #90 tabs (Vitamin B-12 ER) furosemide 40 mg tablet 40 mg PO DAILY #90 tabs 05/18/22 metformin 500 mg tablet,extended 500 mg PO QPM #90 tabs 05/18/22 release 24 hr metoprolol tartrate 25 mg tablet 12.5 mg (1/2 x 25 mg) PO BID #90 05/18/22 tab-caps nitroglycerin 0.4 mg sublingual 0.4 mg sublingual PRN #30 tabs 05/18/22 tablet omeprazole 20 mg capsule,delayed 20 mg PO BID #180 tabs 05/18/22 release losartan 50 mg tablet 50 mg PO DAILY #90 tab-caps 09/19/22 meloxicam 15 mg tablet 15 mg PO DAILY #30 tabs 03/18/23 hydrocodone 5 mg-acetaminophen 325 1 tab PO Q6H PRN severe pain #6 04/16/23 mg tablet tabs Current Visit Medications: Current Medications Generic Name Dose Route Start Last Admin Trade Name Freq PRN Reason Stop Dose Admin Acetaminophen 1,000 mg 04/16/23 06:00 04/16/23 11:01 Acetaminophen 500 Mg Tab PO 05/16/23 05:59 1,000 mg PREOP LILIA Administration Acetaminophen 650 mg 04/16/23 10:20 Acetaminophen 325 Mg Tab PO 05/16/23 10:19 Q4H PRN PRN Hydrocodone Bitart/Acetaminophen 0 tab 04/16/23 10:20 Hydrocodone 5/Acetaminophen 325 Tab PO 05/16/23 10:19 Q3H PRN PRN Pain Celecoxib 400 mg 04/16/23 06:00 04/16/23 11:00 Celecoxib 200 Mg Cap PO 05/16/23 05:59 400 mg PREOP LILIA Administration Gabapentin 300 mg 04/16/23 06:00 04/16/23 11:00 Gabapentin 300 Mg Cap PO 05/16/23 05:59 300 mg PREOP LILIA Administration Ringer's Solution 1,000 mls @ 80 mls/hr 04/16/23 06:00 04/16/23 11:01 IV 05/15/23 23:59 80 mls/hr INFUSION LILIA Administration Cefazolin Sodium/Dextrose 2 gm in 50 mls @ 100 mls/hr 04/16/23 06:00 Ancef Duplex IVPB 04/16/23 16:00 PREOP LILIA IV Miscellaneous Supplies 1 each 04/16/23 06:00 Iv Access IV 05/15/23 23:59 DIRECTED LILIA Sodium Chloride 0 ml 04/16/23 06:00 Normal Saline Flush 10 Ml Syr IV 05/15/23 23:59 PRN PRN Sodium Chloride 0 ml 04/16/23 06:00 Normal Saline 10 Ml Vial IJ 05/15/23 23:59 DIRECTED PRN Sterile Water 0 ml 04/16/23 06:00 Water,Injection,Sterile 10 Ml Vial IJ 05/15/23 23:59 DIRECTED PRN PFSH Active Problems Active Problems: Problem Status Onset Code Asymmetrical sensorineural hearing loss H90.3 Tear of medial meniscus of left knee S83.242A Skin lesion L98.9 Decreased hearing H91.90 Osteoarthritis of left knee M17.12 Diastasis recti M62.08 Left knee pain M25.562 DM type 2 (diabetes mellitus, type 2) E11.9 Nocturnal leg cramps G47.62 Hyperlipidemia 07/09/12 E78.5 Gastroesophageal reflux disease with esophagitis 09/29/08 K21.0 Essential hypertension 12/24/12 I10 Coronary artery arteriosclerosis 09/02/13 I25.10 Chronic obstructive lung disease 09/29/08 J44.9 Medical History Medical History Tubular adenoma Illiterate Per pt. pt. is unable to read or write, he is able to sign his name, but needs to have things read to him. Hx of myocardial infarction 2010-f/u with PCP Tobacco use disorder (07/09/12) quit 2009 Family history of colon cancer (08/20/11) Depressive disorder (09/29/08) Surgical History Surgical History History of colonoscopy with polypectomy (~01/13/21) Shoulder Surgery (~03/2016) Heart Surgery x2 stents - 2009 Colonoscopy - MAC (03/11/17) Appendectomy Tobacco Smoking/Tobacco Use Status: Former Tobacco Use Passive smoking exposure: No Second hand exposure: No Alcohol Alcohol Intake: current Alcohol intake frequency: holidays/special occasions only Substance Use Substance use: Never Substance use type: does not use Vital Signs and Lab Results Vital Signs Most Recent Vital Signs in EMR: Most Recent Vital Signs Temp Pulse Resp BP Pulse Ox 36.6 C 63 18 128/72 97 04/16/23 10:45 04/16/23 10:45 04/16/23 10:45 04/16/23 10:45 04/16/23 10:45 Point of Care Results Point of Care Results: Finger Stick Blood Glucose 109 04/16/23 10:33 Lab Results Blood Type / Crossmatch: No Data to Display Complete Blood Count: No Data to Display Complete Metabolic Panel: No Data to Display Liver Function Panel: No Data to Display Coagulation Panel: No Data to Display Cardiac Panel: No Data to Display Arterial Blood Gas: No Data to Display Venous Blood Gas: No Data to Display Pancreas Panel: No Data to Display Thyroid Panel: No Data to Display Infectious Disease: No Data to Display Blood Cultures: No Data to Display Toxicology Panel: No Data to Display Imaging and Studies Imaging and Studies Study information below may be from another EMR and interpreted by another provider. Please see original notes in EMR for more complete details. Echocardiogram Summary: 06/30/12: EF 55%, Normal valves Cardiac Catheterization Summary: 06/30/12: Stent x2 to RCA Pulmonary Function Summary: DATE OF SERVICE: May 16, 2015 PRIMARY CARE PROVIDER: Terry Nichols M.D. INTERPRETATION OF STUDY: Spirometry shows mild obstructive airways disease with no significant bronchodilator response. LUNG VOLUMES: Show no evidence of restriction. DIFFUSION CAPACITY: Normal. AIRWAYS RESISTANCE: Normal. IMPRESSION: Overall normal pulmonary function study. Clinical correlation recommended. Both efforts for spirometry were either somewhat poor patient effort or represent intrathoracic but extrapulmonary airway obstruction based on the shape of the flow volume loop, therefore further evaluation for that may be recommended. When this study was compared to previous one from 09/30/08, the patient has 330 cc decline in FVC and 80 cc decline in FEV1. Anesthesia Assessment and Plan Anesthesia History Personal History: No History of Anesthesia Complications Family History: No Family History of Anesthesia Complications Exercise Tolerance Exercise Tolerance: Metabolic Equivalents>4 Pertinent Negatives Pertinent Negatives: No Symptoms of GERD Cardiac & Pulmonary Exam Cardiac Exam: Normal S1/S2 Heart Sounds Pulmonary Exam: Clear Bilateral Breath Sounds Implantable Cardiac Device Does patient have a Pacemaker or an ICD?: No Airway Exam Known Difficult Airway: No Mallampati Class: 3 Mouth Opening: Narrow (< 3cm) Thyromental Distance: Less than 3 cm Neck Range of Motion: Full ROM Neck Circumference: Normal Teeth Condition: Removable Dentures/Plates Upper ASA Classification ASA Score: ASA 3 Emergency Case?: No NPO Status NPO Status: NPO Clears >2 hours, Solids >8 hours Anesthesia Plan Resuscitation Status: Full Code Anesthesia Technique: General Anesthesia Airway Planned: LMA Monitors Used: Standard Monitors
[2023-04-16] MEDS: EPINEPHrine 10 MG/10 ML ML (13:55)
[2023-04-16] MEDS: Bupivacaine 0.5% Pres-Free 30 ML VIAL (13:57)
--- NOTE | 2023-04-16 14:27 | W.ANESPOSTOP ---
Postoperative Evaluation Date, Time and Location Date Performed: 04/16/23 Time Performed: 14:28 Patient Location: PACU Vital Signs Most Recent Imported Vital Signs: Most Recent Vital Signs Temp Pulse Resp BP Pulse Ox 36.5 C 71 13 95/65 L 96 04/16/23 14:23 04/16/23 14:23 04/16/23 14:23 04/16/23 14:23 04/16/23 14:23 Pain Score Most Recent Pain Score: Most Recent Pain Score Pain Level 8 04/16/23 10:45 Assessment Mental Status: Arousable with meaningful communication Airway and Respiratory Function: Patent airway with normal (patient baseline) respiratory exam Cardiovascular Function: Hemodynamically Stable Hydration Status: Adequately Hydrated Nausea & Vomiting: No Nausea or Vomiting Pain: Pain is tolerable per patient Peripheral Nerve Block: Patient did not receive a nerve block
--- NOTE | 2023-04-16 15:04 | ROE_ITS ---
Date of service: 04/16/23 Time of Service: 13:30 Operative Note Operative Note DATE OF PROCEDURE: 04/16/23 PRE-OP DIAGNOSIS: Left Knee Medial Meniscus Tear POST-OP DIAGNOSIS: same (Left Knee Medial Femoral Cartilage Flap) PROCEDURE: Left Knee Arthroscopic Partial Medial Menisectomy and Chondroplasty SURGEON: Basilio Rodriguez ANESTHESIA TYPE: General LMA/ETT Refer to Anesthesia Record ESTIMATED BLOOD LOSS: 0 PATHOLOGY: none sent COMPLICATIONS: None Patient was transported to: PACU Patient's condition: stable Indications: I have seen Ravin in clinic for symptoms of a meniscus tear. This was confirmed based on MRI and exam findings. Nonoperative measures were exhausted but disability and pain persisted. I discussed knee arthroscopy with meniscal intervention with the patient. I reviewed the risks of the procedure to include, but not limited to, bleeding, infection, pain, stiffness, damage to nerves or vessels, recurrence, blood clot. Despite these risks, the patient elected to proceed. 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 The consent was reviewed with the patient and signed. The history and physical was updated. All questions were answered. Ravni was taken back to the operating room. The patient was placed into the supine position on the operating room table. All bony prominences were well padded. Prophylactic antibiotics in the form of Cefazolin were administered. The left leg was then prepped with Chloraprep and draped in a standard fashion w ith stockinette and extremity drape. A timeout to confirm correct identity, side and site, procedure, allergies, anesthesia, and medical concerns was performed. The leg was placed into a pneumatic leg sunshine, [id number]. A standard lateral portal was made at the lateral border of the patella tendon in line with the inferior pole of the patella, soft spot. The skin and deep tissue was incised sharply and the blunt trochar was inserted atraumatically. A diagnostic arthroscopy was performed and the findings are listed above. The suprapatellar pouch had no significant inflammatory change. The patellofemoral articulation showed no articular damage as well as good tracking. The lateral gutter had no loose bodies and the medial gutter had no loose bodies. The knee was brought into some valgus stress in extension to open the medial compartment. A medial portal was made, localized by a spinal needle. The portal was created with an #11 blade through skin and capsule under direct visualization avoiding any meniscal injury. A probe was then inserted into the medial compartment. The medial compartment was fully inspected. The chondral surface of the tibia showed some fissuring and soft areas of cartilage which tracked down to bone and the surface of the femur showed global grade 2/3 changes with a large chondral flap which was unstable. The medial meniscus had a complex tear mostly at the posterior horn with some fraying of the undersurface of the meniscus over to the root although the root was intact. After evaluation, the meniscus was debrided down to a stable base using a series of biters and arthroscopic julio. It was probed afterwards to confirm that the tear had been removed and the meniscus was stable. Cartilage surfaces were debrided of any flaps, leaving any intact fibers. The notch was then inspected which showed an intact ACL and an intact PCL. The leg was then brought into a figure of 4 position. The lateral compartment was fully inspected with the arthroscope and a probe. The chondral surface of the lateral femur showed no significant chondromalacia. The chondral surface of the lateral tibia showed no significant chondromalacia. The lateral meniscus had no meniscal tear. The arthroscope was brought back into the suprapatellar pouch and the leg was in full extension. The knee was thoroughly irrigated with the arthroscopic fluid on high flow and pressure. Inflow was stopped and excess fluid was removed. The wounds were closed with 4-0 Nylon. They were dressed with Xeroform, 4x4 gauze, ABD pad, Kerlix and an ALTHEA wrap. A cryo-cuff was applied. The patient tolerated the procedure well and was returned to the Same Day Surgery area in a stable condition suffering no known complication.
== END 2023-04-16 16:30 | disposition home or self-care (01) ==
PROVIDERS: PCP Nurse Practitioner Family; Visit Provider Student in an Organized Health Care Education/Training Program
PROC: (CPT 29870; principal; 2023-04-16 14:15)
DX: M23.232 Derangement of other medial meniscus due to old tear or injury, left knee (principal); M94.262 Chondromalacia, left knee
CPT/HCPCS: 29881; J0665; J1100; J1885; J2001; J2250; J2405; J2704; J3010

== ENCOUNTER → 2023-04-29 13:09 | Outpatient (BNVA) | payer OTHER, MEDICAID, SELFPAY | PROVIDERS: PCP Nurse Practitioner Family; Referring Provider Nurse Practitioner Family; Visit Provider Student in an Organized Health Care Education/Training Program | DX: S83.242D Other tear of medial meniscus, current injury, left knee, subsequent encounter (principal); X58.XXXD Exposure to other specified factors, subsequent encounter ==

== ENCOUNTER → 2023-06-07 00:53 | Outpatient (CLI) | payer OTHER, MEDICAID, SELFPAY ==
--- NOTE | 2023-06-07 06:30 | DI.US_ITS ---
Exam(s) US SOFT TISSUE HEAD OR NECK EXAM: US SOFT TISSUE HEAD OR NECK CLINICAL HISTORY: swelling,mass lt side of neck,r22.1. TECHNIQUE: Ultrasound was performed using standard protocol. COMPARISON: No exams were available for comparison FINDINGS: Sonographic assessment utilizing grayscale and color Doppler imaging was performed and targeted to th e area of clinical concern. There is a 1.5 x 0.9 x 1.5 cm hypoechoic mass in the left parotid gland. This corresponds to the pal pable abnormality. There are 2 lymph nodes seen in the adjacent soft tissues. The largest measures 1.2 x 0.9 x 1.3 cm. IMPRESSION: Hypoechoic 1.5 x 0.9 x 1.[address]otid mass. CT scan of the neck with contrast is recommended fo r further evaluation. DATA REPOSITORY:
== END ==
PROVIDERS: PCP Nurse Practitioner Family; Visit Provider Nurse Practitioner Family
DX: R22.1 Localized swelling, mass and lump, neck (principal); D37.030 Neoplasm of uncertain behavior of the parotid salivary glands
CPT/HCPCS: 76536

== ENCOUNTER 2023-06-07 14:42 | Outpatient (CLI) | payer OTHER, MEDICAID, SELFPAY ==
[2023-06-07 11:46] LABS: Abs Immature Grans 0.02 10^3/uL (0.0-0.06); Absolute Basophil Count 0.07 10^3/uL (0.0-0.2); Absolute Eosinophil Count 0.36 10^3/uL (0.0-0.7); Absolute Lymphocyte Count 2.16 10^3/uL (1.2-3.4); Absolute Monocyte Count 0.61 10^3/uL (0.1-0.8); Absolute Neutrophil Count 4.66 10^3/uL (1.2-6.7); Basophils % 0.9; Eosinophils % 4.6; HCT 45.5 % (40.0-50.0); HGB 15.1 g/dL (13.5-17.5); Immature Grans % 0.3; Lymphocytes % 27.4; MCHC 33.2 % (32.0-36.0); MCV 90 fL (80-95); MPV 8.7 fL (8.0-11.0); Monocytes % 7.7; Neutrophils % 59.1; Platelet Count 273 10^3/uL (130-400); RBC 5.04 10^6/uL (4.36-5.78); RDW 12.7 % (11.8-14.1); RDW-SD 41.8 fL; WBC 7.88 10^3/uL (4.4-10.8)
[2023-06-07 11:58] LABS: Hemoglobin A1C 5.8 % (<5.7)
[2023-06-07 12:19] LABS: ALT 46 U/L (16-63); AST 28 U/L (15-37); Alkaline Phosphatase 118 U/L (46-116); Anion Gap 7.2 mmol/L (3-11); BUN 20 mg/dL (7-18); Bilirubin, Total 0.4 mg/dL (0.2-1.0); CO2 30.8 mmol/L (21.0-32.0); CREATININE 1.1 mg/dL (0.70-1.30); Calcium 9.1 mg/dL (8.5-10.1); Calculated LDL 63 mg/dL (<100); Chloride 105 mmol/L (98-107); Cholesterol 109 mg/dL (<200); Glucose 106 mg/dL (74-106); HDL Cholesterol 31 mg/dL (40-60); Potassium 4.7 mmol/L (3.5-5.1); Sodium 143 mmol/L (136-145); Total Protein 7.3 g/dL (6.4-8.2); Triglyceride 75 mg/dL (<150)
== END 2023-06-07 14:43 | disposition home or self-care (01) ==
LOC: LBO 14:42
PROVIDERS: PCP Nurse Practitioner Family; Visit Provider Nurse Practitioner Family
DX: E78.5 Hyperlipidemia, unspecified (principal); E11.9 Type 2 diabetes mellitus without complications; R22.1 Localized swelling, mass and lump, neck
CPT/HCPCS: 36415; 80053; 80061; 83036; 85025

== ENCOUNTER 2023-06-22 09:38 | Emergency (ER) | payer OTHER, MEDICAID, SELFPAY ==
[2023-06-22 09:40] VITALS: BP 137/86; PULSE 85; RESP 18; TEMP 36.9; O2SAT 93
--- NOTE | 2023-06-22 09:53 | W.ED.GENAD ---
Discharge Plan Disposition Patient Disposition: Home Condition: Stable Discharge Details Clinical Impression: Laceration of left hand Primary Care Provider: Uche Sharif ED Provider: Pradeep Barajas Home Meds and New Rx's Prescriptions: Continued atorvastatin 80 mg tablet 80 mg PO DAILY Qty: 90 3RF bupropion HCl [Wellbutrin SR] 150 mg tablet sustained-release 12 hr 150 mg PO BID Qty: 180 3RF carbidopa-levodopa [Sinemet] 25-100 mg tablet 1 tab PO HS Qty: 90 3RF Hold Instructions: Home Medication placed on hold at Doctor's office cyanocobalamin (vitamin B-12) [Vitamin B-12] 1,000 mcg tablet extended release 1,000 mcg PO DAILY Qty: 90 4RF furosemide 40 mg tablet 40 mg PO DAILY Qty: 90 3RF losartan 50 mg tablet 50 mg PO DAILY Qty: 90 3RF metformin 500 mg tablet extended release 24 hr 500 mg PO QPM Qty: 90 3RF metoprolol tartrate 25 mg tablet 12.5 mg PO BID Qty: 90 3RF nitroglycerin 0.4 mg tablet, sublingual 0.4 mg Sublingual PRN Qty: 30 5RF omeprazole 20 mg capsule,delayed release(DR/EC) 20 mg PO BID Qty: 180 3RF albuterol sulfate [ProAir HFA] 90 mcg/actuation HFA aerosol inhaler 1 - 2 puff Inhalation Q6H PRN Qty: 1 4RF aspirin 325 MG tablet,delayed release (DR/EC) 325 mg PO DAILY Qty: 90 Patient Comments: 04/15/23: [place] aware pt. continued med, ok'd to proceed with surgery. Arnuity Ellipta 100 mcg/actuation blister with device 1 inh inhalation DAILY Qty: 30 12RF Discharge Instructions Instructions: Laceration (ED) Additional Instructions: The sutures should be removed in 7 to 10 days Return sooner if signs of infection such as spreading redness or yellow-white discharge from the wound occur HPI General Mode of arrival: ambulatory. Date/Time Provider Initiated Documentation: 06/22/23 09:38. Limitations to Documentation: no limitations. Information obtained by: patient. History of Present Illness 67 year old M presents to the emergency department with the chief complaint of left hand lac, described as mild, Patient started experiencing this hour(s) (1) and it has been constant. No relieving factors improve symptom(s), No exacerbating factors reported . Patient notes no other symptoms.. Patient did receive the following treatments prior to arrival, none Related Data Home Medications Medication Instructions Recorded Confirmed aspirin 325 mg tablet,delayed 325 mg PO DAILY #90 tab-caps 11/26/16 06/22/23 release albuterol sulfate 90 mcg/actuation 1 - 2 puff inhalation Q6H PRN ##1 05/18/22 06/22/23 aerosol inhaler (ProAir HFA) atorvastatin 80 mg tablet 80 mg PO DAILY #90 tab-caps 05/21/23 06/22/23 bupropion HCl 150 mg tablet,12 hr 150 mg PO BID #180 tab-caps 05/21/23 06/22/23 sustained-release (Wellbutrin SR) carbidopa 25 mg-levodopa 100 mg 1 tab PO HS #90 tabs 05/21/23 06/22/23 tablet (Sinemet) cyanocobalamin (vitamin B-12) 1,000 mcg PO DAILY Vitamin B 12 05/21/23 06/22/23 1,000 mcg tablet,extended release deficiency #90 tabs (Vitamin B-12 ER) furosemide 40 mg tablet 40 mg PO DAILY #90 tabs 05/21/23 06/22/23 losartan 50 mg tablet 50 mg PO DAILY #90 tab-caps 05/21/23 06/22/23 metformin 500 mg tablet,extended 500 mg PO QPM #90 tabs 05/21/23 06/22/23 release 24 hr metoprolol tartrate 25 mg tablet 12.5 mg (1/2 x 25 mg) PO BID #90 05/21/23 06/22/23 tab-caps nitroglycerin 0.4 mg sublingual 0.4 mg sublingual PRN #30 tabs 05/21/23 06/22/23 tablet omeprazole 20 mg capsule,delayed 20 mg PO BID #180 tabs 05/21/23 06/22/23 release fluticasone furoate 100 1 inh inhalation DAILY #30 ea 05/24/23 06/22/23 mcg/actuation blister powder for inhalation (Arnuity Ellipta) Previous Rx's Medication Instructions Recorded albuterol sulfate 90 mcg/actuation 1 - 2 puff inhalation Q6H PRN ##1 05/18/22 aerosol inhaler (ProAir HFA) atorvastatin 80 mg tablet 80 mg PO DAILY #90 tab-caps 05/21/23 bupropion HCl 150 mg tablet,12 hr 150 mg PO BID #180 tab-caps 05/21/23 sustained-release (Wellbutrin SR) carbidopa 25 mg-levodopa 100 mg 1 tab PO HS #90 tabs 05/21/23 tablet (Sinemet) cyanocobalamin (vitamin B-12) 1,000 mcg PO DAILY Vitamin B 12 05/21/23 1,000 mcg tablet,extended release deficiency #90 tabs (Vitamin B-12 ER) furosemide 40 mg tablet 40 mg PO DAILY #90 tabs 05/21/23 losartan 50 mg tablet 50 mg PO DAILY #90 tab-caps 05/21/23 metformin 500 mg tablet,extended 500 mg PO QPM #90 tabs 05/21/23 release 24 hr metoprolol tartrate 25 mg tablet 12.5 mg (1/2 x 25 mg) PO BID #90 05/21/23 tab-caps nitroglycerin 0.4 mg sublingual 0.4 mg sublingual PRN #30 tabs 05/21/23 tablet omeprazole 20 mg capsule,delayed 20 mg PO BID #180 tabs 05/21/23 release fluticasone furoate 100 1 inh inhalation DAILY #30 ea 05/24/23 mcg/actuation blister powder for inhalation (Arnuity Ellipta) Allergies Allergy/AdvReac Type Severity Reaction Status Date / Time No Known Allergies Allergy Verified 06/22/23 09:43 General Stated Complaint: Laceration UNIQUE: 4 Review of Systems All systems reviewed & are unremarkable except as noted in HPI and below Constitutional Constitutional: Denies chills, Denies fever(s) and Denies weakness Cardiovascular Cardiovascular: Denies chest pain and Denies dyspnea Respiratory Respiratory: Denies cough and Denies dyspnea Gastrointestinal Gastrointestinal: Denies abdominal pain, Denies nausea and Denies vomiting Musculoskeletal Musculoskeletal: Denies joint swelling Neurologic Neurologic: Denies weakness Psychiatric Psychiatric: Denies depression Exam Const General: no acute distress Orientation: alert HENKY Head: normal to inspection Ears: external ears normal General nose exam: external nose normal Mouth: moist mucous membranes Eyes General: appearance normal, both eyes and all related structures Neck Neck: normal visual inspection Resp Effort & Inspection: normal respiratory effort and able to speak in complete sentences Cardio Rate: regular rate Skin General skin exam: no rashes or lesions noted Neuro General: patient alert and patient oriented x3 Extrem General: full ROM Psych Mental Status: mental status grossly normal Course Vital Signs Vital signs: Vital Signs Temperature 36.9 C 06/22/23 09:40 Pulse 85 06/22/23 09:40 Respiratory Rate 18 06/22/23 09:40 Blood Pressure 137/86 06/22/23 09:40 Pulse Oximetry 93 06/22/23 09:40 Temperature 36.9 C 06/22/23 09:40 Temperature Source Temporal Artery Scan 06/22/23 09:40 Pulse 85 06/22/23 09:40 Respiratory Rate 18 06/22/23 09:40 Respiratory Effort Normal, Non-Labored 06/22/23 09:43 Blood Pressure 137/86 06/22/23 09:40 Blood Pressure Position Sitting 06/22/23 09:40 Pulse Oximetry 93 06/22/23 09:40 Oxygen Delivery Method Room Air 06/22/23 09:40 Oxygen Flow Rate 0 06/22/23 09:40 Procedures Laceration Laceration 1: Side (If applicable): left Size (cm): 1.5 Description: linear Depth: simple, single layer Local Anesthetic: Lidocaine 1% and with Epi Amount of anesthesia used (mL): 4 Pre-repair: wound explored Skin layer closed with: nylon Size (cm): 5-0 Number of sutures: 3 Technique: simple, interrupted Medical Decision Making 67-year-old male comes in after he sustained a cut to his left hand while opening a can of tuna. He states he was opening and peeling back the lid when it cut the area between his right thumb and right index finger. Denies any falls or other injuries. He has a superficial 1.5 cm laceration on the palmar surface between the left thumb and index finger, normal cap refill, normal range of motion of the fingers, normal sensation.I closed the wound with 3 sutures after copisous irrigation, no complications, he is stable for d/c and advised to f/u with pcp and return precautions given Differential Diagnosis Differential Diagnosis: laceration,abrasion Quality:SDOH Health Related Social Needs: No Data to Display PFSH All Active Problems (Updated 06/22/23 @ 10:13 by Pradeep Barajas MD) Laceration of left hand (Acute) Mass of left side of neck (Acute) unknown duration, mildly TTP Asymmetrical sensorineural hearing loss (Acute) Skin lesion (Acute) Decreased hearing (Acute) Osteoarthritis of left knee (Acute) Diastasis recti (Acute) Left knee pain (Acute) DM type 2 (diabetes mellitus, type 2) (Acute) Nocturnal leg cramps (Acute) Hyperlipidemia (Acute 07/09/12) Gastroesophageal reflux disease with esophagitis (Acute 09/29/08) Essential hypertension (Acute 12/24/12) Coronary artery arteriosclerosis (Acute 09/02/13) 06/2012 Stents x2 RCA 03/20 NSTEMI Chronic obstructive lung disease (Acute 09/29/08) Medical History (Updated 06/22/23 @ 10:13 by Pradeep Barajas MD) Tubular adenoma Illiterate Per pt. pt. is unable to read or write, he is able to sign his name, but needs to have things read to him. Hx of myocardial infarction 2009-f/u with PCP Tobacco use disorder (07/09/12) quit 2009 Family history of colon cancer (08/20/11) Depressive disorder (09/29/08) Surgical History History of colonoscopy with polypectomy (~01/13/21) Shoulder Surgery (~03/2016) Heart Surgery x2 stents - 2009 Colonoscopy - MAC (03/11/17) Appendectomy Family History Mother , age 75 Stroke Depression Father Heart disease Sister Heart disease Brother , age 62 Heart disease Sister Heart disease Sister Diabetes Brother No problems noted. Brother Heart disease Diabetes Son No problems noted. Daughter No problems noted. Daughter No problems noted. Social History (Updated 05/27/23 @ 12:43 by Jaki Harris) Smoking/Tobacco Use Status: Former Tobacco Use tobacco type: cigarettes Quit Date: 04/08/09 Tobacco: How many years used: 12 Second Hand Exposure: No Smoking risk assessment performed?: Yes Alcohol Intake: current Alcohol Intake frequency: a few times a month Alcohol type: hard liquor Drug use: Never Substance use type: does not use Adopted: No Caregiver/Support person: No Foster care: No Household members: spouse Housing: house Number of Children: 3 number of grandchildren: 3 Communication Needs: Hard of Hearing Education Level: high school Details: 10th grade Do you need help understanding health information?: Often current occupation: retired Pets and animals: Yes Pets and animals: cat(s) and dog(s) Sexually active: Yes Do you think of yourself as: straight/heterosexual Current gender identity: male What is your relationship status?: How often do you talk on the phone with friends or family?: twice per week How often do you get together with friends or relatives?: three or more times per week How often do you attend mormonism or methodist services?: 1-3 times per year Do you belong to any clubs or organized social groups?: no Panel score (0-1 are the most socially isolated patients): 2 What type of physical activity do you participate in: walking Duration: 45-60 minutes/day Frequency: 3-4 times per week Isabel/Orthodoxy: Yarsanism Special isabel needs: No Seatbelt use: always Helmet use: Yes Helmet use: always Drive intox or ride w/intox operator and truck driver: No Firearms in home: No Do you feel safe at home: Yes Do you feel safe in your relationship?: Yes Victim of physical abuse: No Victim of emotional abuse: No Victim of sexual abuse: No Would you like helpful sources: No Additional Social history: Unable to assess robertomichael HERNANDEZ Have you Been Recently Intoxicated or Drunk Within the Last 30 days?: No Have you Ever Experienced Previous Episodes of Alcohol Withdrawal?: No Have you ever Experienced Withdrawal Seizures?: No Have you ever Experienced Delirium Tremens(DT)s?: No Have you ever undergone Alcohol Rehabilitation Treatment (i.e, inpt ot outpatient treatment programs)?: No Have you ever Experienced Blackouts?: No Have you ever Combined Alcohol with other Downers within the last 90 days?: No Have you ever Combined Alcohol with any other Substance of Abuse during the last 90 days?: No Positive Blood Alcohol level on Presentation? [PCS.BAL]: No Evidence of Increased Autonomic Activity (i.e. HR>120, tremor, sweating, agitation, nausea)?: No Result: 0
[2023-06-22] MEDS: Lidocaine 1% Multi-Dose W/EPI 1/100,000 50 ML VIAL (10:01)
== END 2023-06-22 10:19 | disposition home or self-care (01) ==
LOC: ER 10:15
PROVIDERS: Emergency Provider Emergency Medicine; PCP Nurse Practitioner Family
DX: S61.412A Laceration without foreign body of left hand, initial encounter (principal); I25.10 Atherosclerotic heart disease of native coronary artery without angina pectoris; I25.2 Old myocardial infarction; I10 Essential (primary) hypertension; E11.9 Type 2 diabetes mellitus without complications; J44.9 Chronic obstructive pulmonary disease, unspecified; Z79.82 Long term (current) use of aspirin; Z79.84 Long term (current) use of oral hypoglycemic drugs; Z95.5 Presence of coronary angioplasty implant and graft; Z87.891 Personal history of nicotine dependence; W26.8XXA Contact with other sharp object(s), not elsewhere classified, initial encounter; Y93.G1 Activity, food preparation and clean up; Y92.010 Kitchen of single-family (private) house as the place of occurrence of the external cause
CPT/HCPCS: 12001; 99283; J2004

== ENCOUNTER → 2023-06-24 04:02 | Outpatient (CLI) | payer OTHER, MEDICAID, SELFPAY ==
[2023-06-24] MEDS: Omnipaque 350 MG/ML 100 ML BTL IJ (15:16)
[2023-06-24] MEDS: Normal Saline - Diluent 50 ML VIAL IJ (15:16)
--- NOTE | 2023-06-24 15:27 | DI.CT_ITS ---
Exam(s) CT NECK W EXAM: CT NECK W INDICATION: f/u abnl us,mass lt side of neck, r22.1. COMPARISON: US US SOFT TISSUE HEAD OR NECK from 06/07/2023 06/07/2023 reviewed. TECHNIQUE: FINDINGS: VISUALIZED PARANASAL SINUSES: Unremarkable. SALIVARY GLANDS: The submandibular glands appear unremarkable as does the right parotid gland. Howev er, there is an enhancing mass in the inferior aspect of the left parotid gland immediately adjacent to the sternocleidomastoid muscle at this level. This enhancing somewhat ill-defined border mass suresh sures 1.4 cm AP x 1.4 cm wide by 2 cm craniocaudal. No other focal findings in the ipsilateral parot id gland. There is no adenopathy on either side of the neck. NASOPHARYNX: Unremarkable ORODENTAL: The patient is edentulous. No lesions nor abscess is evident in the oral cavity. OROPHARYNX: Unremarkable. No masses evident. HYPOPHARYNX: Unremarkable. Valleculae and epiglottis and aryepiglottic folds appear normal. VOCAL CORDS: Unremarkable. No masses evident. Subglottic airway appears unremarkable. THYROID GLAND: Unremarkable. Normal size and no obvious nodules. LYMPH NODES: There is no adenopathy evident in the neck and supraclavicular regions. OTHER: VISUALIZED LUNG APICES: No significant findings. IMPRESSION: 1. There is an enhancing 14 x 14 x 20 mm lesion in the inferior aspect of the left parotid gland, th is corresponding to findings seen on recent ultrasound. No findings in the opposite-right parotid gl and nor in either submandibular gland. First consideration is for small neoplasm at this level. 2. There is no obvious lymphadenopathy evident. RADIATION DOSE DELIVERED: Total DLP DATA REPOSITORY: All CT scans at this facility are submitted to the National Radiology Data Registry (NRDR) Dose Index Registry (DIR) with the [employer] (ACR). RADIATION OPTIMIZATION: All CT scans at this facility use at least one of these dose optimization te chniques: automated exposure control; mA and/or kV adjustment per patient size (includes targeted exa ms where dose is matched to clinical indication); or iterative reconstruction.
== END ==
PROVIDERS: PCP Nurse Practitioner Family; Visit Provider Nurse Practitioner Family
DX: R22.1 Localized swelling, mass and lump, neck (principal); D37.030 Neoplasm of uncertain behavior of the parotid salivary glands
CPT/HCPCS: 70491; J3490

== ENCOUNTER 2023-07-01 14:17 | Emergency (ER) | payer OTHER, MEDICAID, SELFPAY ==
--- NOTE | 2023-07-01 14:19 | W.ED.GENAD ---
Discharge Plan Disposition Patient Disposition: Home Condition: Stable Discharge Details Clinical Impression: Encounter for removal of sutures Primary Care Provider: Uche Sharif ED Provider: Pradeep Barajas Home Meds and New Rx's Prescriptions: Continued atorvastatin 80 mg tablet 80 mg PO DAILY Qty: 90 3RF bupropion HCl [Wellbutrin SR] 150 mg tablet sustained-release 12 hr 150 mg PO BID Qty: 180 3RF carbidopa-levodopa [Sinemet] 25-100 mg tablet 1 tab PO HS Qty: 90 3RF Hold Instructions: Home Medication placed on hold at Doctor's office cyanocobalamin (vitamin B-12) [Vitamin B-12] 1,000 mcg tablet extended release 1,000 mcg PO DAILY Qty: 90 4RF furosemide 40 mg tablet 40 mg PO DAILY Qty: 90 3RF losartan 50 mg tablet 50 mg PO DAILY Qty: 90 3RF metformin 500 mg tablet extended release 24 hr 500 mg PO QPM Qty: 90 3RF metoprolol tartrate 25 mg tablet 12.5 mg PO BID Qty: 90 3RF nitroglycerin 0.4 mg tablet, sublingual 0.4 mg Sublingual PRN Qty: 30 5RF omeprazole 20 mg capsule,delayed release(DR/EC) 20 mg PO BID Qty: 180 3RF Pulmicort Flexhaler 90 mcg/actuation aerosol powdr breath activated 1 inh inhalation BID Qty: 1 3RF albuterol sulfate [ProAir HFA] 90 mcg/actuation HFA aerosol inhaler 1 - 2 puff Inhalation Q6H PRN Qty: 1 4RF aspirin 325 MG tablet,delayed release (DR/EC) 325 mg PO DAILY Qty: 90 Patient Comments: 04/15/23: [place] aware pt. continued med, ok'd to proceed with surgery. Discharge Instructions Additional Instructions: if signs of infection develop such as spreading redness or yellow/white discharge or sever pain return to the emergency department follow up with your primary care provider as needed HPI General Mode of arrival: ambulatory. Date/Time Provider Initiated Documentation: 07/01/23 14:18. Limitations to Documentation: no limitations. Information obtained by: patient. History of Present Illness 67 year old M presents to the emergency department with the chief complaint of suture removal, described as mild, Patient started experiencing this week(s) (1) and it has been constant. No relieving factors improve symptom(s), No exacerbating factors reported . Patient notes no other symptoms.. Patient did receive the following treatments prior to arrival, none Related Data Home Medications Medication Instructions Recorded Confirmed aspirin 325 mg tablet,delayed 325 mg PO DAILY #90 tab-caps 11/26/16 07/01/23 release albuterol sulfate 90 mcg/actuation 1 - 2 puff inhalation Q6H PRN ##1 05/18/22 07/01/23 aerosol inhaler (ProAir HFA) atorvastatin 80 mg tablet 80 mg PO DAILY #90 tab-caps 05/21/23 07/01/23 bupropion HCl 150 mg tablet,12 hr 150 mg PO BID #180 tab-caps 05/21/23 07/01/23 sustained-release (Wellbutrin SR) carbidopa 25 mg-levodopa 100 mg 1 tab PO HS #90 tabs 05/21/23 07/01/23 tablet (Sinemet) cyanocobalamin (vitamin B-12) 1,000 mcg PO DAILY Vitamin B 12 05/21/23 07/01/23 1,000 mcg tablet,extended release deficiency #90 tabs (Vitamin B-12 ER) furosemide 40 mg tablet 40 mg PO DAILY #90 tabs 05/21/23 07/01/23 losartan 50 mg tablet 50 mg PO DAILY #90 tab-caps 05/21/23 07/01/23 metformin 500 mg tablet,extended 500 mg PO QPM #90 tabs 05/21/23 07/01/23 release 24 hr metoprolol tartrate 25 mg tablet 12.5 mg (1/2 x 25 mg) PO BID #90 05/21/23 07/01/23 tab-caps nitroglycerin 0.4 mg sublingual 0.4 mg sublingual PRN #30 tabs 05/21/23 07/01/23 tablet omeprazole 20 mg capsule,delayed 20 mg PO BID #180 tabs 05/21/23 07/01/23 release budesonide 90 mcg/actuation breath 1 inh inhalation BID #1 ea 06/25/23 07/01/23 activated powder inhaler (Pulmicort Flexhaler) Previous Rx's Medication Instructions Recorded albuterol sulfate 90 mcg/actuation 1 - 2 puff inhalation Q6H PRN ##1 05/18/22 aerosol inhaler (ProAir HFA) atorvastatin 80 mg tablet 80 mg PO DAILY #90 tab-caps 05/21/23 bupropion HCl 150 mg tablet,12 hr 150 mg PO BID #180 tab-caps 05/21/23 sustained-release (Wellbutrin SR) carbidopa 25 mg-levodopa 100 mg 1 tab PO HS #90 tabs 05/21/23 tablet (Sinemet) cyanocobalamin (vitamin B-12) 1,000 mcg PO DAILY Vitamin B 12 05/21/23 1,000 mcg tablet,extended release deficiency #90 tabs (Vitamin B-12 ER) furosemide 40 mg tablet 40 mg PO DAILY #90 tabs 05/21/23 losartan 50 mg tablet 50 mg PO DAILY #90 tab-caps 05/21/23 metformin 500 mg tablet,extended 500 mg PO QPM #90 tabs 05/21/23 release 24 hr metoprolol tartrate 25 mg tablet 12.5 mg (1/2 x 25 mg) PO BID #90 05/21/23 tab-caps nitroglycerin 0.4 mg sublingual 0.4 mg sublingual PRN #30 tabs 05/21/23 tablet omeprazole 20 mg capsule,delayed 20 mg PO BID #180 tabs 05/21/23 release budesonide 90 mcg/actuation breath 1 inh inhalation BID #1 ea 06/25/23 activated powder inhaler (Pulmicort Flexhaler) Allergies Allergy/AdvReac Type Severity Reaction Status Date / Time fluticasone furoate AdvReac Intermediate Headache Verified 07/01/23 14:23 [From Arncr Ellipcarlene] General UNIQUE: 4 Review of Systems All systems reviewed & are unremarkable except as noted in HPI and below Constitutional Constitutional: Denies chills, Denies fever(s) and Denies weakness Cardiovascular Cardiovascular: Denies chest pain and Denies dyspnea Respiratory Respiratory: Denies cough and Denies dyspnea Gastrointestinal Gastrointestinal: Denies abdominal pain, Denies nausea and Denies vomiting Musculoskeletal Musculoskeletal: Denies joint swelling Neurologic Neurologic: Denies weakness Exam Const General: no acute distress Orientation: alert [facility] Head: normal to inspection Ears: external ears normal General nose exam: external nose normal Mouth: moist mucous membranes Eyes General: appearance normal, both eyes and all related structures Neck Neck: normal visual inspection Resp Effort & Inspection: normal respiratory effort and able to speak in complete sentences Cardio Rate: regular rate Skin General skin exam: no rashes or lesions noted Neuro General: patient alert and patient oriented x3 Extrem General: full ROM and capillary refill normal Psych Mental Status: mental status grossly normal Medical Decision Making 67-year-old male comes in with request for suture removal. He cut his hand on a can of tuna a week ago and had sutures placed in the left hand. Denies any redness, pain, numbness, discharge from the wound. The wound is on his left hand between the left thumb and index finger, the wound appears well-healed without signs of infection, sutures are adequate to be removed at this time. He is stable for discharge, return precautions given Quality:SDOH Health Related Social Needs: No Data to Display [facility] All Active Problems (Updated 07/01/23 @ 14:22 by Pradeep Barajas MD) Encounter for removal of sutures (Acute) Laceration of left hand (Acute) Mass of left side of neck (Acute) unknown duration, mildly TTP Asymmetrical sensorineural hearing loss (Acute) Skin lesion (Acute) Decreased hearing (Acute) Osteoarthritis of left knee (Acute) Diastasis recti (Acute) Left knee pain (Acute) DM type 2 (diabetes mellitus, type 2) (Acute) Nocturnal leg cramps (Acute) Hyperlipidemia (Acute 07/09/12) Gastroesophageal reflux disease with esophagitis (Acute 09/29/08) Essential hypertension (Acute 12/24/12) Coronary artery arteriosclerosis (Acute 09/02/13) 06/2012 Stents x2 RCA 03/20 NSTEMI Chronic obstructive lung disease (Acute 09/29/08) Medical History Tubular adenoma Illiterate Per pt. pt. is unable to read or write, he is able to sign his name, but needs to have things read to him. Hx of myocardial infarction 2009-f/u with PCP Tobacco use disorder (07/09/12) quit 2009 Family history of colon cancer (08/20/11) Depressive disorder (09/29/08) Surgical History History of colonoscopy with polypectomy (~01/13/21) Shoulder Surgery (~03/2016) Heart Surgery x2 stents - 2009 Colonoscopy - MAC (03/11/17) Appendectomy Family History Mother , age 75 Stroke Depression Father Heart disease Sister Heart disease Brother , age 62 Heart disease Sister Heart disease Sister Diabetes Brother No problems noted. Brother Heart disease Diabetes Son No problems noted. Daughter No problems noted. Daughter No problems noted. Social History Smoking/Tobacco Use Status: Former Tobacco Use tobacco type: cigarettes Quit Date: 04/08/09 Tobacco: How many years used: 12 Second Hand Exposure: No Smoking risk assessment performed?: Yes Alcohol Intake: current Alcohol Intake frequency: a few times a month Alcohol type: hard liquor Drug use: Never Substance use type: does not use Adopted: No Caregiver/Support person: No Foster care: No Household members: spouse Housing: house Number of Children: 3 number of grandchildren: 3 Communication Needs: Hard of Hearing Education Level: high school Details: 10th grade Do you need help understanding health information?: Often current occupation: retired Pets and animals: Yes Pets and animals: cat(s) and dog(s) Sexually active: Yes Do you think of yourself as: straight/heterosexual Current gender identity: male What is your relationship status?: How often do you talk on the phone with friends or family?: twice per week How often do you get together with friends or relatives?: three or more times per week How often do you attend latter day or muslim services?: 1-3 times per year Do you belong to any clubs or organized social groups?: no Panel score (0-1 are the most socially isolated patients): 2 What type of physical activity do you participate in: walking Duration: 45-60 minutes/day Frequency: 3-4 times per week Isabel/Nondenominational: Zoroastrian Special isabel needs: No Seatbelt use: always Helmet use: Yes Helmet use: always Drive intox or ride w/intox fork truck driver: No Firearms in home: No Do you feel safe at home: Yes Do you feel safe in your relationship?: Yes Victim of physical abuse: No Victim of emotional abuse: No Victim of sexual abuse: No Would you like helpful sources: No Additional Social history: Unable to assess netta
[2023-07-01 14:21] VITALS: BP 100/65; PULSE 72; RESP 18; TEMP 37.4; O2SAT 95
== END 2023-07-01 14:34 | disposition home or self-care (01) ==
LOC: ER 14:26
PROVIDERS: Emergency Provider Emergency Medicine; PCP Nurse Practitioner Family
DX: Z48.02 Encounter for removal of sutures (principal)

== ENCOUNTER 2023-08-21 10:23 | Outpatient (REF) | payer OTHER, MEDICAID, SELFPAY ==
--- NOTE | 2023-08-21 10:00 | PAPNONF_PTH ---
PATIENT: Ravin Snyder LOC: [facility] U#:[id number] AGE/SX: 67/M ROOM: RE08/21/[address]: Sina Plummer MD : 1955 BED: DIS: 08/21/2023 SPEC #: [id number] RECD: 08/21/23 17:43 STATUS: JORY REBrandon #: [id number] EHSAN: 08/21/23 10:[address]: Sina Plummer DEPT: [facility] Cytology RECD BY: Indy Rizo ENTERED: 08/21/23 17:44 SP TYPE: LETITIA GARCIA DR: Uche Ye DNP Tissues: 1 - BODY FLUID CYTO-FINE NEEDLE ASPIRATE-[facility] Procedures: BODY FLUID CYTO-FINE NEEDLE ASPIRATE-[facility] Comments: [id number] (REFRIGERATED)
== END 2023-08-21 10:24 | disposition home or self-care (01) ==
LOC: LBN 10:23
PROVIDERS: PCP Nurse Practitioner Family; Visit Provider Otolaryngology
DX: R22.1 Localized swelling, mass and lump, neck (principal)
CPT/HCPCS: 88104

== ENCOUNTER → 2023-10-22 01:20 | Outpatient (CLI) | payer OTHER, MEDICAID, SELFPAY ==
--- NOTE | 2023-10-22 07:15 | DI.US_ITS ---
Exam(s) US NEEDLE LOCAL OTHER WO RAD EXAM: US NEEDLE LOCAL OTHER WO RAD CLINICAL HISTORY: left-sided neck mass,ULTRASOUND GUIDED BX,R22.1. COMPARISON: CT CT NECK W from 06/24/2023 TECHNIQUE: Ultrasound was provided for Dr. Plummer for guidance with performing parotid biopsy. FINDINGS: Please see procedure note for details. DATA REPOSITORY:
--- NOTE | 2023-10-22 12:30 | PAPNONF_PTH ---
PATIENT: Ravin Snyder LOC: [facility] U#:[id number] AGE/SX: 69/M ROOM: RE10/22/[address]: Marialuisa Piña : 1955 BED: DIS: SPEC #: [id number] RECD: 10/22/23 13:02 STATUS: JORY SERNA #: [id number] EHSAN: 10/22/23 12:[address]: Marialuisa Piña DEPT: [facility] Cytology RECD BY: Indy Rizo ENTERED: 10/22/23 13:05 SP TYPE: LETITIA GARCIA DR: Uche Ye DNP Tissues: 1 - BODY FLUID CYTO-FINE NEEDLE ASPIRATE-[facility] Procedures: BODY FLUID CYTO-FINE NEEDLE ASPIRATE-[facility] Comments: [id number] (PATH FNA CONSULT) (REFRIGERATED)
--- NOTE | 2023-10-22 13:02 | W.PROCNOTE ---
Date of service: 10/22/23 Time of Service: 13:03 Procedure Note Date of procedure: 10/22/23 Procedure: Ultrasound-guided FNA, left neck mass Procedure Diagnosis: Left neck mass Procedure Indications: The patient had previously undergone FNA in the office that was nondiagnostic. Options were explained to the patient regarding further management. He elected to undergo the above procedure. Consent was filled out and signed prior to procedure. Procedure Description: The patient was positioned in the supine position and prepped and draped in appropriate fashion. The mass while easily palpable, and just immediately subcutaneous, does not appear well-defined on ultrasound. As such, using a combination of the ultrasound and digital palpation, the mass was localized, and then local in the form of 1% lidocaine with 1/100,000 epinephrine was injected into the skin and subcutaneous tissues overlying the mass. A 25-gauge needle was passed repeatedly into the nodule. The first biopsy did not yield any results. The second biopsy had scant spindle shaped cells. This was verified by pathology who were onsite. Following this, the wound was inspected for hemostasis, and the patient was allowed to sit and stand and ambulate. His vital signs remained stable. He will avoid strenuous activity or heavy lifting for the next 24 hours. Will call with any signs of infection or if he does not hear from me with regard to pathology within 1 week. We discussed the fact that I suspect this may represent a neuroma given the tenderness, and the spindle cell appearance of the cells but I would like to wait until we have more definitive pathology. Further care will depend upon the findings on final pathology. He had no further questions. He is comfortable with the plan. He may use ibuprofen or Tylenol for any discomfort.
== END ==
PROVIDERS: PCP Nurse Practitioner Family; Visit Provider Registered Nurse Maternal Newborn
DX: R22.1 Localized swelling, mass and lump, neck (principal)
CPT/HCPCS: 10005; 76942; 88104

== ENCOUNTER 2024-12-15 13:03 | Outpatient (CLI) | payer MEDICARE, MEDICAID, SELFPAY ==
[2024-12-15 16:12] LABS: Hemoglobin A1C 6.0 % (<5.7)
[2024-12-15 16:15] LABS: ALT 34 U/L (16-63); AST 27 U/L (15-37); Albumin 3.9 g/dL (3.4-5.0); Alkaline Phosphatase 118 U/L (46-116); Anion Gap 8.7 mmol/L (3-11); BUN 21 mg/dL (7-18); Bilirubin, Total 0.4 mg/dL (0.2-1.0); CO2 28.3 mmol/L (21.0-32.0); Calcium 9.0 mg/dL (8.5-10.1); Calculated LDL 106 mg/dL (<100); Chloride 103 mmol/L (98-107); Cholesterol 162 mg/dL (<200); Estimated GFR 93.61 (mL/min/1.73m2); Glucose 112 mg/dL (74-106); HDL Cholesterol 31 mg/dL (>or=40); Potassium 4.3 mmol/L (3.5-5.1); Sodium 140 mmol/L (136-145); Total Protein 7.4 g/dL (6.4-8.2); Triglyceride 128 mg/dL (<150)
[2024-12-16 11:58] LABS: HIV-1/2 Ag & Ab Screen Negative (Negative)
[2024-12-16 12:02] LABS: HBs Antibody, Quant 3.6 mIU/mL (See Note); Hepatitis B Surface Antigen Negative (Negative)
[2024-12-16 12:16] LABS: Hepatitis C Ab w Rflx HCV PCR Negative (Negative)
== END 2024-12-15 13:04 | disposition home or self-care (01) ==
LOC: LOS 13:04
PROVIDERS: PCP Nurse Practitioner Family; Referring Provider Nurse Practitioner Family; Visit Provider Nurse Practitioner Family
DX: Z11.59 Encounter for screening for other viral diseases (principal); Z11.4 Encounter for screening for human immunodeficiency virus [HIV]; I25.10 Atherosclerotic heart disease of native coronary artery without angina pectoris; E11.9 Type 2 diabetes mellitus without complications
CPT/HCPCS: 36415; 80053; 80061; 86704; 86706; 86803; 87340; 87389; 83036

== ENCOUNTER 2024-12-24 04:09 | Outpatient (CLI) | payer MEDICARE, MEDICAID, SELFPAY ==
--- NOTE | 2024-12-24 07:00 | DI.CTLCSR_ITS ---
Exam(s) CT CHEST LUNG CANCER SCREEN EXAM: CT CHEST LUNG CANCER SCREEN CLINICAL HISTORY: Screening for lung cancer,former smoker,z98.891 TECHNIQUE: Imaging Protocol: Axial computed tomography images with coronal and sagittal reformatted images were created and reviewed. Lung Computer Aided Detection (CAD) was utilized. COMPARISON: CT CHEST WITH CONTRAST from 02/11/2009 CT CHEST WITH CONTRAST from 10/22/2013 FINDINGS: Tracheobronchial tree: Patent where visualized. No bronchiectasis. Pulmonary parenchyma: No consolidation or dominant measurable mass. No architectural distortion. Lung Nodules: There are no suspicious pulmonary nodules. Mediastinum and April: No dominant adenopathy or fluid collection. The esophagus is unremarkable. Thyroid gland: Unremarkable. Lymph nodes: Unremarkable. Pleura: No effusion or pneumothorax. Heart: The heart is not dilated. Mild coronary artery calcification is present. No pericardial effusion. Aorta: Thoracic aorta non-dilated.Mild atherosclerotic calcification is present. Upper abdomen: Unremarkable. Soft Tissues: Unremarkable. Bones: Within normal limits. IMPRESSION: There are no suspicious pulmonary nodules. Lung RADS Cat 1 - Negative: No nodules and definitely benign nodules Lung-RADS 1.0 CATEGORIES: Category 0 - Prior chest CT exam(s) being located for comparison. Category 1 - Annual screening in 12 months. No nodules or definitely benign nodules. Category 2 - Annual screening in 12 months. Benign appearance. Nodules with low likelihood of becoming active cancer. Category 3 - 6-month follow-up. Probably benign. Short-term follow-up suggested. Nodules with low likelihood of becoming active cancer. Category 4A - 3-month follow-up and CT/PET if >8 mm in size. Suspicious finding. Findings which require additional testing. Category 4B - Findings which require additional testing and tissue sampling. Suspicious finding. Category 4X - Category 3 or 4 nodules with additional features or imaging findings that increases the suspicion of malignancy. Modifier S- Potentially clinically significant finding. (Non lung cancer) RADIATION DOSE DELIVERED: 34.17mGy.cm Total DLP 34.17mGy.cmTotal DLP DATA REPOSITORY: All CT scans at this facility are submitted to the National Radiology Data Registry (NRDR) Dose Index Registry (DIR) with the [employer] ([employer]). RADIATION OPTIMIZATION: All CT scans at this facility use at least one of these dose optimization techniques: automated exposure control; mA and/or kV adjustment per patient size (includes targeted exams where dose is matched to clinical indication); or iterative reconstruction.
== END 2024-12-24 04:29 ==
LOC: DI 04:10
PROVIDERS: PCP Nurse Practitioner Family; Visit Provider Nurse Practitioner Family
DX: Z12.2 Encounter for screening for malignant neoplasm of respiratory organs (principal); Z87.891 Personal history of nicotine dependence
CPT/HCPCS: 71271